=== PATIENT | female | born 1935 | race Caucasian/White ===

== ENCOUNTER 2017-01-01 06:54 | Day surgery (SDC) | payer MEDICARE, OTHER ==
[~2017-01-01 06:54] MED LIST: Lactated Ringers 1,000 ML IV SCH; Lidocaine 1%/Sod Bicarbonate in NS 8.4% 1 ML Syringe IV PRN; Sodium Chloride 0.9% 10 ML Syringe FLUSH PRN
[2017-01-01] MEDS ORDERED: Propofol 200 MG/20 ML SDV ONE ×2 (07:24→09:10)
[2017-01-01] MEDS ORDERED: fentaNYL 250 MCG/5 ML SDV ONE (07:24)
[2017-01-01] MEDS ORDERED: Bupivacaine 0.25% 10 ML SDV ONE (07:33)
[2017-01-01] MEDS ORDERED: Ropivacaine 0.5% 5 MG/ML 30 ML SDV ONE (07:42)
--- NOTE | 2017-01-01 08:34 | PCM.PREANE ---
Preanesthetic Assessment - Anesthesia/Transfusion/Family Hx Anesthesia History: Prior Anesthesia Without Reaction Family History of Anesthesia Reaction: No - Review of Systems General: No Symptoms Pulmonary: No Symptoms Cardiovascular: No Symptoms Gastrointestinal: Abdominal pain (pt states GI discomfort is normal for her) Neurological: No Symptoms Other: Reports: None - Physical Assessment NPO Status Date: 12/31/16 NPO Status Time: 18:15 Pulse: 66 O2 Sat by Pulse Oximetry: 98 Respiratory Rate: 16 Blood Pressure: 143/77 Temperature: 36.8 C Height: 1.55 m Weight: 45.359 kg ASA Class: 2 Mental Status: Alert & Oriented x3 Airway Class: Mallampati = 2 Dentition: Reports: [place](s), Missing Tooth/Teeth (missing two molars 1 upper and one lower right side) Thyro-Mental Finger Breadths: 3 Mouth Opening Finger Breadths: 3 ROM/Head Extension: Full Lungs: Clear to auscultation, Normal respiratory effort Cardiovascular: Regular Rate, Regular Rhythm, No Murmurs - Lab Values: Laboratory Last Values MRSA (PCR) Negative 12/23/16 11:38 CBC and BMP essentially normal from [address] on 12/23/16 - Imaging/EKG Impressions: EKG sinus nicolás with PAC from [address] on 12/23/16 - Allergies Allergies/Adverse Reactions: Allergies Allergy/AdvReac Type Severity Reaction Status Date / Time lidocaine AdvReac Mild Swelling Verified 12/31/16 14:52 - Anesthesia Plan Beta Avni: Metoprolol Med Last Dose Date: 01/01/17 Med Last Dose Time: 05:45 - Acknowledgements Anesthesia Type Planned: Regional Block (Right Ankle Block) Pt an Appropriate Candidate for the Planned Anesthesia: Yes Alternatives and Risks of Anesthesia Discussed w Pt/Guardian: Yes Pt/Guardian Understands and Agrees with Anesthesia Plan: Yes PreAnesthesia Questionnaire HEENT History: Reports: Impaired vision Cardiovascular History: Reports: High cholesterol, Hypertension Respiratory History: Reports: None Gastrointestinal History: Reports: GERD Genitourinary History: Reports: None STEAM TABLE ASSOCIATE History: Reports: None Musculoskeletal History: Reports: Other (see below) Other Musculoskeletal History: muscle pain, osteporosis, 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 Neurological History: Reports: Migraines Psychiatric History: Reports: None Endocrine/Metabolic History: Reports: None Hematologic History: Reports: None Immunologic History: Reports: None Oncologic (Cancer) History: Reports: None Dermatologic History: Reports: None - Past Surgical History Head Surgeries/Procedures: Reports: None HEENT Surgical History: Reports: Cataract surgery, Tonsillectomy GI Surgical History: Reports: Appendectomy, Colonoscopy, Other (see below) Other GI Surgeries/Procedures: hiatal hernia - SUBSTANCE USE Smoking Status *Q: Never Smoker Tobacco Use Within Last Twelve Months: No Second Hand Smoke Exposure: No Days Per Week of Alcohol Use: 0 Recreational Drug Use History: No - HOME MEDS Home Medications: Home Meds Gabapentin 100 mg PO BEDTIME 11/15/14 [History] Lisinopril/Hydrochlorothiazide [Lisinopril-Hctz 20-12.5 mg Tab] 1 tab PO DAILY 11/15/14 [History] Metoprolol Tartrate 25 mg PO BID 11/15/14 [History] atorvaSTATin [Lipitor] 10 mg PO BEDTIME 11/15/14 [History] Denosumab [Prolia] 60 mg SQ ASDIRECTED 12/02/14 [History] Lactobacillus Acidophilus [Probiotic] 1 tab PO DAILY 12/02/14 [History] Cholecalciferol (Vitamin D3) [Vitamin D3] 1,000 unit PO DAILY 12/31/16 [History] Flaxseed Oil [Flax Oil] 1,000 mg PO DAILY 12/31/16 [History] Glucosamine/D3/Boswellia Angelique [Osteo Bi-Flex Caplet] 2 cap PO DAILY 12/31/16 [ History] [place]-3 Fatty Acids [Fish Oil] 300 mg PO DAILY 12/31/16 [History] Omeprazole 20 mg PO Q48H 12/31/16 [History] Vit A/C/E AC/Znox/Cupric Oxide [Eye Vitamin-Minerals Tablet] 1 tab PO DAILY 02/11 [History] Hydrocodone/Acetaminophen [[place] 5-325 Tablet] 1 - 2 each PO Q6H PRN #40 tablet 01/01/17 [Rx] Aspirin 325 mg PO BID #100 tablet 01/02/17 [Rx] - CURRENT (IN HOUSE) MEDS Current Meds: Current Medications Lactated Ringer's (Ringers, Lactated) 1,000 mls @ 125 mls/hr IV ASDIRECTED SEEMA Stop: 01/01/17 23:00 Last Admin: 01/01/17 07:30 Dose: 125 mls/hr Lidocaine/Sodium Bicarbonate (Buffered Lidocaine 1% In Ns 8.4%) 0.25 ml IV ONETIME PRN PRN Reason: Prior to IV Start Stop: 01/01/17 18:00 Sodium Chloride (Saline Flush) 10 ml FLUSH ASDIRECTED PRN PRN Reason: Keep Vein Open Stop: 01/01/17 18:00 Discontinued Medications Bupivacaine HCl (Sensorcaine-Mpf 0.25%) Confirm Administered Dose 30 ml .ROUTE .STK-MED ONE Stop: 01/01/17 07:34 Fentanyl (Sublimaze) Confirm Administered Dose 250 mcg .ROUTE .STK-MED ONE Stop: 01/01/17 07:25 Propofol (Diprivan 20 Ml) Confirm Administered Dose 200 mg .ROUTE .STK-MED ONE Stop: 01/01/17 07:25 Ropivacaine (Naropin 0.5%) Confirm Administered Dose 30 ml .ROUTE .STK-MED ONE Stop: 01/01/17 07:43 Preanesthetic Assessment - ANESTHESIA/TRANSFUSION/FAMILY HX Anesthesia/Transfusion History: No Prior Anesthesia Family History of Anesthesia Reaction: No Intubation History: Unknown - PHYSICAL ASSESSMENT Height: 1.55 m Weight: 45.359 kg - LAB Values: Laboratory Last Values MRSA (PCR) Negative 12/23/16 11:38 - ALLERGIES Allergies/Adverse Reactions: Allergies Allergy/AdvReac Type Severity Reaction Status Date / Time lidocaine AdvReac Mild Swelling Verified 12/31/16 14:52
--- NOTE | 2017-01-01 09:34 | PCM.SN ---
- Free Text/Narrative Note: ANesthesiology Procedure Note Right Ankle Block requested by Dr Lopez and by pt. After ID, H&P, IV, PARQ: Ankle Block with sedation, Consent Obtained. Standard Monitors and NCO2 placed Pre-procedure vitals 154/54, 66, 98%, 14RR Time out at 07:55 Procedural sedation of 30 mg propofol and 50 mcg fentanyl given IV Sterile prep (chloraprep) and drape of Right Foot and Ankle 25 Ga 1.5 inch needle inserted lateral to extensor hallucis tendon until contact with bone. withdrawn 2 mm and 3cc of Ropivacaine 0.5% with 1:200,000 epi injected in fanwise fashion after neg aspirations. needle withdrawn. needle re-inserted just behind medial malleolus until bone contacted. needle withdrawn 1 mm and 3 cc of same LA mixture injected in fan fashion after neg aspirations. needle withdrawn. Needle reinserted just cephalad of medial malleolus and 5cc of same LA mix injected in a subcvutaneous weal both posteriorly to the achilles tendon and anteriorly to the tibial ridge. needle withdrawn. needle inserted again at the tibial ridge at the level of the upper border of the lateral malleolus and 5 cc injected in a weal from tibial ridge posterolaterally to the lateral malleolus and again 4cc in a subcutaneous weal from lateral malleolus to achilles tendon. needle withdrawn. pt tolerated procedure well. no complications. Post-procedure Vitals - 117/66, HR 56, RR12, 96%
--- NOTE | 2017-01-01 09:58 | PCM.OPNOTE ---
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
[2017-01-01] MEDS ORDERED: EPINEPHrine 1 MG/ML SDV ONE (10:19)
[2017-01-01] MEDS ORDERED: Phenylephrine 1% 10 MG/ML SDV ONE (10:19)
[2017-01-01] MEDS ORDERED: ceFAZolin 1 GM Vial ONE (10:19)
[2017-01-01] MEDS ORDERED: Lactated Ringers 1,000 ML ONE (10:19)
--- NOTE | 2017-01-01 10:31 | PCM48HPAN ---
Post Anesthesia Note - EVALUATION WITHIN 48HRS OF ANESTHETIC Vital Signs in Normal Range: Yes Patient Participated in Evaluation: Yes Respiratory Function Stable: Yes Airway Patent: Yes Cardiovascular Function Stable: Yes Hydration Status Stable: Yes Pain Control Satisfactory: Yes Nausea and Vomiting Control Satisfactory: Yes Mental Status Recovered: Yes
[2017-01-01] MEDS ORDERED: fentaNYL 100 MCG/2 ML SDV IVPUSH PRN (10:35)
[2017-01-01] MEDS ORDERED: Acetaminophen/HYDROcodone 325-5 MG Tab PO ONE (10:56)
[2017-01-01 11:16] VITALS: BP 125/70
--- NOTE | 2017-01-01 11:52 | CR ---
Right foot: Multiple fluoroscopic spot views of the right foot were obtained centered to the right first toe. Study obtained utilizing C-arm device. Plate and screws have been placed across the MTP joint. Slight deformity presumably due to subacute to old fracture seen within the base of this proximal phalanx of the second digit. Fluoroscopy time given as 35.8 seconds. Impression: 1. Study showing placement of plate and screws across the first MTP joint. 2. Subacute to old fracture within the second toe. Diagnostic code #2
--- NOTE | 2017-01-07 09:02 | OR ---
DATE OF OPERATION: 01/01/2017 SURGEON: Lalo Lopez MD OPERATIVE PROCEDURE: 1. Right great toe metatarsophalangeal fusion. 2. Second toe extensor lengthening with Lemons resection arthroplasty and capsular release with pinning of 2nd metatarsophalangeal joint. 3. Second toe flexor tenotomy. 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 ANESTHESIA TECHNIQUE: Local MAC. ANESTHESIA PROVIDER: Lake Smith M.D. ASSISTANTS: Britni Kapoor PA-C and Blaze Johnson M.D. ESTIMATED BLOOD LOSS: 5 mL. COMPLICATIONS: None. CONDITION: Stable. DESCRIPTION OF PROCEDURE: The patient was identified in the preop holding area. Proper site was marked and identified by the surgeon. The patient was taken back to the operating theater, where after adequate anesthesia with an ankle block, the patient's right lower extremity was sterilely prepped and draped in the usual sterile fashion. OR time-out was performed. The patient received 2 g IV Ancef. A tourniquet was then used. At this time, first, incision was made over the 1st MTP joint. This was taken down to the capsule. A capsulotomy was then performed and takedown both medial and lateral collateral ligaments was done at this time. The patient was noted to have significant irregular wear with significant osteoarthrosis. At this time, a guidepin was placed center-center in the 1st metatarsal head and was reamed to a 20 mm concentric reamer. A guidepin was then placed in the proximal phalanx in the center-center position and the corresponding 20 mm reamer was used. At this time, after release of the capsule, it was placed in a proper position. A K-wire was placed for 3-0 cannulated screw and a 3-0 cannulated [place]illah screw was placed across the fusion site of the 1st MTP joint. It was found to have rigid fixation. At this time, a Jeffrey dorsal 1st MTP joint locking plate was placed under fluoroscopic views and was found to be in adequate position. Two nonlocking screws were placed on either side of the compression as well as 1 locking screw on either side of the compression, this was found to have adequate fixation. At this time, attention was turned to the 2nd toe, which had significant claw toe deformity. At this time, an incision was made over the extensor tendon and capsule of the 2nd MTP joint. Capsulotomy was then performed over the dorsum of the 1st MTP joint and lengthening of the extensor tendon was then done. Attention was turned to the flexor tendon and a small incision was made on the plantar surface over the proximal phalanx. The tendon sheath was identified. A small rent was made in the tendon sheath. The tendon was then extracted from the wound bed and a tenotomy was performed with a flexor tendon. The patient was found to have correction of the claw toe. At this time, it was pinned in a down enough position to allow for capsular healing. Before this, part of the proximal phalanx head and neck was resected also to shorten the 2nd phalanx to allow for better correction. Adequate saline was then irrigated through the wound. Ethibond suture was used for repair of the extensor tendon and then 3-0 Vicryl was used subcutaneously for closure of the capsule and nylon was used for the skin. The patient was placed in a sterile dressing as well as posterior slab splint and tolerated the procedure well. POSTOPERATIVE DIAGNOSIS:same MMODAL /[id number] ANGELICA
== END 2017-01-01 11:55 | disposition home or self-care (01) ==
LOC: JD.SDS 06:54
PROVIDERS: ATTEND Orthopaedic Surgery
DX: M19.071 Primary osteoarthritis, right ankle and foot (principal); K21.9 Gastro-esophageal reflux disease without esophagitis; E78.5 Hyperlipidemia, unspecified; I10 Essential (primary) hypertension; Z68.1 Body mass index [BMI] 19.9 or less, adult; Z90.49 Acquired absence of other specified parts of digestive tract; Z79.82 Long term (current) use of aspirin; Z98.890 Other specified postprocedural states; Z79.899 Other long term (current) drug therapy; Z88.8 Allergy status to other drugs, medicaments and biological substances
CPT/HCPCS: 28292; 28313; 28750; 76000; 87641; A9270; J0171; J0690; J2370; J2795; J3010; J7120; 01480; C1713; J2704

== ENCOUNTER 2017-07-08 22:04 | Emergency (ER) | payer MEDICARE, OTHER ==
[2017-07-08 22:17] VITALS: BP 158/73
[2017-07-08] MEDS ORDERED: Sodium Chloride 0.9% 10 ML Syringe FLUSH PRN (22:35)
[2017-07-08] MEDS ORDERED: methylPREDNISolone Sodium Succinate 125 MG/2 ML SDV IVPUSH ONE (22:35)
[2017-07-08] MEDS ORDERED: HYDROmorphone 0.5 MG/0.5 ML Syringe IVPUSH ONE (22:35)
[2017-07-08] MEDS ORDERED: Ketorolac 30 MG/ML SDV IVPUSH SCH (22:45)
--- NOTE | 2017-07-08 22:56 | EDM.PDOC ---
ED HPI GENERAL MEDICAL PROBLEM - General Chief Complaint: Lower Extremity Injury/Pain Stated Complaint: PAIN DOWN HER LEFT LEG Time Seen by Provider: 07/08/17 22:15 Source of Information: Reports: Patient, RN Notes Reviewed - History of Present Illness INITIAL COMMENTS - FREE TEXT/NARRATIVE: 81-year-old female comes in with severe left low back pain. She states she does have left back pain with sciatica chronically but usually able to manage with home medication. Last evening and today the pain is been much more severe than usual. Now after arrival to the ED the pain is somewhat better but it had been severe to the point of being unable to sleep. No peripheral paresthesias. No focal weakness. No recent fall or injury. Treatments SPAR FINISHER: Reports: NSAIDS Left Leg Pain Score (Numeric/FACES): 7 - Related Data Allergies Allergy/AdvReac Type Severity Reaction Status Date / Time lidocaine AdvReac Mild Swelling Verified 07/08/17 22:16 Home Meds: Home Meds Gabapentin 100 mg PO BEDTIME 11/15/14 [History] Lisinopril/Hydrochlorothiazide [Lisinopril-Hctz 20-12.5 mg Tab] 1 tab PO DAILY 11/15/14 [History] Metoprolol Tartrate 25 mg PO BID 11/15/14 [History] atorvaSTATin [Lipitor] 10 mg PO BEDTIME 11/15/14 [History] Denosumab [Prolia] 60 mg SQ ASDIRECTED 12/02/14 [History] Lactobacillus Acidophilus [Probiotic] 1 tab PO DAILY 12/02/14 [History] Cholecalciferol (Vitamin D3) [Vitamin D3] 1,000 unit PO DAILY 12/31/16 [History] Flaxseed Oil [Flax Oil] 450 mg PO DAILY 12/31/16 [History] Glucosamine/D3/Boswellia Angelique [Osteo Bi-Flex Caplet] 2 cap PO DAILY 12/31/16 [ History] Scalf-3 Fatty Acids [Fish Oil] 300 mg PO DAILY 12/31/16 [History] Omeprazole 20 mg PO Q48H 12/31/16 [History] Vit A/C/E AC/Znox/Cupric Oxide [Eye Vitamin-Minerals Tablet] 1 tab PO DAILY 02/11 [History] Aspirin 81 mg PO BRK 07/08/17 [History] Past Medical History HEENT History: Reports: Impaired Vision Cardiovascular History: Reports: High Cholesterol, Hypertension Respiratory History: Reports: None Gastrointestinal History: Reports: GERD Genitourinary History: Reports: None WASH TEST CHECKER History: Reports: None Musculoskeletal History: Reports: Back Pain, Chronic, Other (See Below) Other Musculoskeletal History: sciatica Neurological History: Reports: Migraines Psychiatric History: Reports: None Endocrine/Metabolic History: Reports: None Hematologic History: Reports: None Immunologic History: Reports: None Oncologic (Cancer) History: Reports: None Dermatologic History: Reports: None - Past Surgical History HEENT Surgical History: Reports: Cataract Surgery, Tonsillectomy GI Surgical History: Reports: Appendectomy, Colonoscopy, Other (See Below) Social & Family History - Tobacco Use Smoking Status *Q: Never Smoker Second Hand Smoke Exposure: No - Caffeine Use Caffeine Use: Reports: None - Alcohol Use Days Per Week of Alcohol Use: 0 - Recreational Drug Use Recreational Drug Use: No Review of Systems - Review of Systems Review Of Systems: See Below Constitutional: Denies: Chills, Fever Eyes: Reports: No Symptoms Mouth/Throat: Reports: No Symptoms Respiratory: Denies: Shortness of Breath, Pleuritic Chest Pain Cardiovascular: Denies: Chest Pain GI/Abdominal: Denies: Abdominal Pain, Nausea, Vomiting Musculoskeletal: Reports: Back Pain (Left low back) Skin: Reports: No Symptoms Neurological: Denies: Numbness, Tingling, Weakness ED EXAM, GENERAL - Physical Exam Exam: See Below General Appearance: Alert, Mild Distress Throat/Mouth: Normal Inspection Head: Atraumatic. No: Facial Swelling Neck: Supple, Full Range of Motion Respiratory/Chest: No Respiratory Distress, Lungs Clear, Normal Breath Sounds Cardiovascular: Regular Rate, Rhythm Extremities: Normal Inspection. No: Leg Pain, Increased Warmth (Lower leg is nontender), Redness Neurological: Alert, Oriented, No Motor/Sensory Deficits, Other (Mild pain with straight leg raising on the left) Skin Exam: Warm, Dry, Normal Color Course - Vital Signs Last Recorded V/S: Last Vital Signs Temp 98.1 F 07/08/17 22:13 Pulse 59 L 07/08/17 22:13 Resp 18 07/08/17 22:13 BP 158/73 H 07/08/17 22:13 Pulse Ox 96 07/08/17 22:13 - Orders/Labs/Meds Orders: Active Orders 24 hr Category Date Time Status Peripheral IV Care [RC] . DIRECTED Care 07/08/17 22:36 Active Ketorolac [Toradol] Med 07/08/17 22:45 Active 30 mg IVPUSH ONETIME Sodium Chloride 0.9% [Saline Flush] Med 07/08/17 22:35 Active 10 ml FLUSH ASDIRECTED PRN Peripheral IV Insertion Adult [OM.PC] Stat Oth 07/08/17 22:35 Ordered Medication Orders Ketorolac Tromethamine (Toradol) 30 mg IVPUSH ONETIME SEEMA Last Admin: 07/08/17 22:45 Dose: 30 mg Sodium Chloride (Saline Flush) 10 ml FLUSH ASDIRECTED PRN PRN Reason: Keep Vein Open Last Admin: 07/08/17 22:46 Dose: 10 ml Meds: Medications Generic Name Dose Route Start Last Admin Trade Name Freq PRN Reason Stop Dose Admin Ketorolac Tromethamine 30 mg 07/08/17 22:45 07/08/17 22:45 Toradol IVPUSH 30 mg ONETIME SEEMA Administration Sodium Chloride 10 ml 07/08/17 22:35 07/08/17 22:46 Saline Flush FLUSH 10 ml ASDIRECTED PRN Administration Keep Vein Open Discontinued Medications Generic Name Dose Route Start Last Admin Trade Name Freq PRN Reason Stop Dose Admin Hydromorphone HCl 0.5 mg 07/08/17 22:35 07/08/17 22:45 Dilaudid IVPUSH 07/08/17 22:36 0.5 mg ONETIME ONE Administration Methylprednisolone Sodium Succinate 125 mg 07/08/17 22:35 07/08/17 22:45 Solu-Medrol IVPUSH 07/08/17 22:36 125 mg ONETIME ONE Administration - Re-Assessments/Exams Free Text/Narrative Re-Assessment/Exam: 07/08/17 22:58 Have treated with IV Dilaudid 0.5 mg, IV Toradol and IV Solu-Medrol, discharge instructions as documented. Departure - Departure Time of Disposition: 23:15 Disposition: Home, Self-Care 01 Condition: Fair Clinical Impression: Back pain with left-sided sciatica - Discharge Information Referrals: Kike Warren MD [Primary Care Provider] - Additional Instructions: Rest back, no heavy lifting, alternate ice and heat as needed, Aleve one tablet 3 times daily with food, you may take 500 mg Tylenol with one half tablet hydrocodone 2-3 times daily in between doses of Aleve for extra pain relief, As the pain gets better than stop the hyrdrocodone. Prednisone every morning as prescribed for the next 6 days, follow-up with your chiropractor until symptoms resolving, follow-up with your regular medical provider if not much better within 3-4 days as expected, return to ED as needed if symptoms worsening in any way. - My Orders Last 24 Hours: My Active Orders 07/08/17 22:35 Sodium Chloride 0.9% [Saline Flush] 10 ml FLUSH ASDIRECTED PRN Peripheral IV Insertion Adult [OM.PC] Stat 07/08/17 22:36 Peripheral IV Care [RC] . DIRECTED 07/08/17 22:45 Ketorolac [Toradol] 30 mg IVPUSH ONETIME - Assessment/Plan Last 24 Hours: My Active Orders 07/08/17 22:35 Sodium Chloride 0.9% [Saline Flush] 10 ml FLUSH ASDIRECTED PRN Peripheral IV Insertion Adult [OM.PC] Stat 07/08/17 22:36 Peripheral IV Care [RC] . DIRECTED 07/08/17 22:45 Ketorolac [Toradol] 30 mg IVPUSH ONETIME
== END 2017-07-08 23:11 | disposition home or self-care (01) ==
LOC: JD.ED 22:04
DX: M54.42 Lumbago with sciatica, left side (principal); E78.00 Pure hypercholesterolemia, unspecified; I10 Essential (primary) hypertension; K21.9 Gastro-esophageal reflux disease without esophagitis; Z79.899 Other long term (current) drug therapy; Z88.8 Allergy status to other drugs, medicaments and biological substances
CPT/HCPCS: 96374; 96375; 99283; J1170; J1885; J2930; J7050; 99284

== ENCOUNTER 2017-07-11 15:23 | Emergency (ER) | payer MEDICARE, OTHER ==
[2017-07-11] MEDS ORDERED: Acetaminophen/HYDROcodone 325-5 MG Tab PO ONE (16:26)
--- NOTE | 2017-07-11 16:31 | EDM.PDOC ---
ED HPI GENERAL MEDICAL PROBLEM - General Chief Complaint: Cardiovascular Problem Stated Complaint: PAIN DOWN L LEG Time Seen by Provider: 07/11/17 15:47 Source of Information: Reports: Patient, RN Notes Reviewed - History of Present Illness INITIAL COMMENTS - FREE TEXT/NARRATIVE: 81-year-old female that is been having left lobe back discomfort with sciatica some time. However this is been much worse over the past week or so. Seen here in the ED about 3 or 4 days ago, started on one half tablet hydrocodone along with 500 mg Tylenol. So was started on prednisone. However she does not feel like the sciatica discomfort has improved. She last medicated about 8 hours ago. The pain is worse with certain types of motion. It is the leg pain that is really the most severe for her. No numbness tingling or weakness. Left Hip Pain Score (Numeric/FACES): 6 - Related Data Allergies Allergy/AdvReac Type Severity Reaction Status Date / Time lidocaine AdvReac Mild Swelling Verified 07/11/17 15:34 Home Meds: Home Meds Gabapentin 100 mg PO BEDTIME 11/15/14 [History] Lisinopril/Hydrochlorothiazide [Lisinopril-Hctz 20-12.5 mg Tab] 1 tab PO DAILY 11/15/14 [History] Metoprolol Tartrate 25 mg PO BID 11/15/14 [History] atorvaSTATin [Lipitor] 10 mg PO BEDTIME 11/15/14 [History] Denosumab [Prolia] 60 mg SQ ASDIRECTED 12/02/14 [History] Lactobacillus Acidophilus [Probiotic] 1 tab PO DAILY 12/02/14 [History] Cholecalciferol (Vitamin D3) [Vitamin D3] 1,000 unit PO DAILY 12/31/16 [History] Flaxseed Oil [Flax Oil] 450 mg PO DAILY 12/31/16 [History] Glucosamine/D3/Boswellia Angelique [Osteo Bi-Flex Caplet] 2 cap PO DAILY 12/31/16 [ History] [place]-3 Fatty Acids [Fish Oil] 300 mg PO DAILY 12/31/16 [History] Omeprazole 20 mg PO Q48H 12/31/16 [History] Vit A/C/E AC/Znox/Cupric Oxide [Eye Vitamin-Minerals Tablet] 1 tab PO DAILY 02/11 [History] Aspirin 81 mg PO BRK 07/08/17 [History] Past Medical History HEENT History: Reports: Impaired Vision Cardiovascular History: Reports: High Cholesterol, Hypertension Respiratory History: Reports: None Gastrointestinal History: Reports: GERD Genitourinary History: Reports: None 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 Musculoskeletal History: Reports: Back Pain, Chronic, Other (See Below) Other Musculoskeletal History: sciatica Neurological History: Reports: Migraines Psychiatric History: Reports: None Endocrine/Metabolic History: Reports: None Hematologic History: Reports: None Immunologic History: Reports: None Oncologic (Cancer) History: Reports: None Dermatologic History: Reports: None - Past Surgical History Head Surgeries/Procedures: Reports: None HEENT Surgical History: Reports: Cataract Surgery, Tonsillectomy GI Surgical History: Reports: Appendectomy, Colonoscopy, Other (See Below) Social & Family History - Tobacco Use Smoking Status *Q: Never Smoker Second Hand Smoke Exposure: No - Caffeine Use Caffeine Use: Reports: None - Alcohol Use Days Per Week of Alcohol Use: 0 - Recreational Drug Use Recreational Drug Use: No ED ROS GENERAL - Review of Systems Review Of Systems: See Below Constitutional: Denies: Fever, Chills, Diaphoresis HEENT: Reports: No Symptoms Respiratory: Denies: Shortness of Breath Cardiovascular: Denies: Chest Pain GI/Abdominal: Denies: Abdominal Pain, Nausea, Vomiting Musculoskeletal: Reports: Leg Pain Skin: Reports: No Symptoms (Left lower extremity) Neurological: Denies: Numbness, Tingling, Weakness ED EXAM, GENERAL - Physical Exam Exam: See Below General Appearance: Alert, Mild Distress Head: Atraumatic Neck: Supple, Full Range of Motion Respiratory/Chest: No Respiratory Distress, Lungs Clear, Normal Breath Sounds Cardiovascular: Regular Rate, Rhythm GI/Abdominal: Soft, Non-Tender Back Exam: Other (There is mild tenderness of the left low back and left buttock ). No: CVA Tenderness (L), CVA Tenderness (R) Extremities: Limited Range of Motion (She does have pain with straight leg raising on the left). No: No Pedal Edema, Pedal Edema, Increased Warmth, Pallor Neurological: Alert, Oriented, No Motor/Sensory Deficits Skin Exam: Warm, Dry, Normal Color Course - Vital Signs Last Recorded V/S: Last Vital Signs Temp 98 F 07/11/17 15:32 Pulse 78 07/11/17 15:32 Resp 16 07/11/17 15:32 BP Pulse Ox 98 07/11/17 15:32 - Orders/Labs/Meds Meds: Medications Discontinued Medications Generic Name Dose Route Start Last Admin Trade Name Nicho PRN Reason Stop Dose Admin Hydrocodone Bitart/Acetaminophen 1 tab 07/11/17 16:26 07/11/17 16:41 [place] 325-5 Mg PO 07/11/17 16:27 1 tab ONETIME ONE Administration - Re-Assessments/Exams Free Text/Narrative Re-Assessment/Exam: 07/14/17 04:03. I did write an order for outpatient MRI. Also increasing her pain medication to one full tablet hydrocodone every 6-8 hours as needed. Discharge instructions as documented Departure - Departure Time of Disposition: 16:27 Disposition: Home, Self-Care 01 Condition: Fair Clinical Impression: Sciatica associated with disorder of lumbosacral spine Instructions: Sciatica Referrals: Kike Warren MD [Primary Care Provider] - Forms: ED Department Discharge Additional Instructions: Increase hydrocodone dosage to one full tablet 3 times daily if needed for severe pain, the Aleve one tablet 3 times daily with food. Be sure to drink plenty of water when taking these medications. I recomend taking a stool softener once or twice daily as the hydrocodone will tend to make you constipated. You may take one half tablet Ambien at night if needed to help you sleep. See Dr. Raman gave her early next week, call Thursday for appointment. MRI of back early next week. An order has been provided. Radiology will call you Thursday with a time.
== END 2017-07-11 16:47 | disposition home or self-care (01) ==
LOC: JD.ED 15:23
DX: M54.32 Sciatica, left side (principal); M53.87 Other specified dorsopathies, lumbosacral region; Z88.5 Allergy status to narcotic agent; E78.00 Pure hypercholesterolemia, unspecified; I10 Essential (primary) hypertension; K21.9 Gastro-esophageal reflux disease without esophagitis; Z79.899 Other long term (current) drug therapy
CPT/HCPCS: 99283; A9270; 99282

== ENCOUNTER 2017-07-19 22:01 | Inpatient (IN) | payer MEDICARE, OTHER ==
[2017-07-19] MEDS ORDERED: Sodium Chloride 0.9% 10 ML Syringe FLUSH PRN (22:41)
[2017-07-19] MEDS ORDERED: HYDROmorphone 0.5 MG/0.5 ML Syringe IVPUSH ONE (22:41)
[2017-07-19] MEDS ORDERED: Ketorolac 15 MG/ML SDV IVPUSH ONE (22:51)
--- NOTE | 2017-07-19 23:35 | EDM.PDOC ---
ED HPI GENERAL MEDICAL PROBLEM - General Chief Complaint: Lower Extremity Injury/Pain Stated Complaint: back pain Time Seen by Provider: 07/19/17 22:27 Source of Information: Reports: Patient, Family History Limitations: Reports: No Limitations - History of Present Illness INITIAL COMMENTS - FREE TEXT/NARRATIVE: The patient presents with left low back pain with sciatica. This has been a problem for a few years but for the past couple weeks it has been much worse. She was seen in the ER on the and the . She had a new MRI done on . It showed a new bulging disc at L5. She is on hydrocodone, aleve, valium, and neurontin for pain and it has not been helping. She denies any weakness but with the pain she is having a hard time waling and needs a walker. She denies any groin numbness, bowel or bladder problems. She has no fever, chills, cough, chest pain, shortness of breath, abdominal pain, nausea or vomiting. Onset: Gradual Duration: Week(s): Location: Reports: Back (Left), Lower Extremity, Left Quality: Reports: Sharp Severity: Severe Improves with: Reports: None Worsens with: Reports: Movement Associated Symptoms: Reports: No Other Symptoms Left Leg Pain Score (Numeric/FACES): 8 - Related Data Allergies Allergy/AdvReac Type Severity Reaction Status Date / Time lidocaine AdvReac Mild Swelling Verified 07/11/17 15:34 Home Meds: Home Meds Gabapentin 100 mg PO BEDTIME 11/15/14 [History] Lisinopril/Hydrochlorothiazide [Lisinopril-Hctz 20-12.5 mg Tab] 1 tab PO DAILY 11/15/14 [History] Metoprolol Tartrate 25 mg PO BID 11/15/14 [History] atorvaSTATin [Lipitor] 10 mg PO BEDTIME 11/15/14 [History] Denosumab [Prolia] 60 mg SQ ASDIRECTED 12/02/14 [History] Lactobacillus Acidophilus [Probiotic] 1 tab PO DAILY 12/02/14 [History] Cholecalciferol (Vitamin D3) [Vitamin D3] 1,000 unit PO DAILY 12/31/16 [History] Flaxseed Oil [Flax Oil] 450 mg PO DAILY 12/31/16 [History] Glucosamine/D3/Boswellia Angelique [Osteo Bi-Flex Caplet] 2 cap PO DAILY 12/31/16 [ History] [place]-3 Fatty Acids [Fish Oil] 300 mg PO DAILY 12/31/16 [History] Omeprazole 20 mg PO Q48H 12/31/16 [History] Vit A/C/E AC/Znox/Cupric Oxide [Eye Vitamin-Minerals Tablet] 1 tab PO DAILY 02/11 [History] Aspirin 81 mg PO BRK 07/08/17 [History] Past Medical History HEENT History: Reports: Impaired Vision Cardiovascular History: Reports: High Cholesterol, Hypertension Respiratory History: Reports: None Gastrointestinal History: Reports: GERD Other Gastrointestinal History: IBS Genitourinary History: Reports: None 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 OF RECRUITMENT History: Reports: 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 Musculoskeletal History: Reports: Back Pain, Chronic, Other (See Below) Other Musculoskeletal History: sciatica, buldging disc Neurological History: Reports: Migraines Psychiatric History: Reports: None Endocrine/Metabolic History: Reports: None Hematologic History: Reports: None Immunologic History: Reports: None Oncologic (Cancer) History: Reports: None Dermatologic History: Reports: None - Past Surgical History Head Surgeries/Procedures: Reports: None HEENT Surgical History: Reports: Cataract Surgery, Tonsillectomy GI Surgical History: Reports: Appendectomy, Colonoscopy, Other (See Below) Other Musculoskeletal Surgeries/Procedures:: R joint fusion on toe, bunionecotmy Social & Family History - Tobacco Use Smoking Status *Q: Never Smoker Second Hand Smoke Exposure: No - Caffeine Use Caffeine Use: Reports: None - Alcohol Use Days Per Week of Alcohol Use: 0 - Recreational Drug Use Recreational Drug Use: No Review of Systems - Review of Systems Review Of Systems: See Below Constitutional: Reports: No Symptoms Eyes: Reports: No Symptoms Ears: Reports: No Symptoms Nose: Reports: No Symptoms Mouth/Throat: Reports: No Symptoms Respiratory: Reports: No Symptoms Cardiovascular: Reports: No Symptoms GI/Abdominal: Reports: No Symptoms Genitourinary: Reports: No Symptoms Musculoskeletal: Reports: Back Pain (Left with sciatica) ED EXAM, GENERAL - Physical Exam Exam: See Below Exam Limited By: No Limitations General Appearance: Alert, No Apparent Distress Ears: Normal External Exam Nose: Normal Inspection Head: Atraumatic, Normocephalic Neck: Normal Inspection Respiratory/Chest: No Respiratory Distress, Lungs Clear, Normal Breath Sounds Cardiovascular: Regular Rate, Rhythm, No Edema, No Murmur GI/Abdominal: Soft, Non-Tender, No Organomegaly, No Mass Back Exam: Other (Mild pain upon palpation to the left low back) Extremities: Normal Inspection Neurological: Alert, Oriented, No Motor/Sensory Deficits Course - Vital Signs Last Recorded V/S: Last Vital Signs Temp 97.1 F 07/19/17 22:11 Pulse 71 07/19/17 22:11 Resp 16 07/19/17 22:11 BP 155/69 H 07/19/17 22:11 Pulse Ox 99 07/19/17 22:11 - Orders/Labs/Meds Orders: Active Orders 24 hr Category Date Time Status Peripheral IV Care [RC] . DIRECTED Care 07/19/17 22:41 Active Sodium Chloride 0.9% [Saline Flush] Med 07/19/17 22:41 Active 10 ml FLUSH ASDIRECTED PRN Peripheral IV Insertion Adult [OM.PC] Routine Oth 07/19/17 22:41 Ordered Medication Orders Sodium Chloride (Saline Flush) 10 ml FLUSH ASDIRECTED PRN PRN Reason: Keep Vein Open Last Admin: 07/19/17 22:57 Dose: 10 ml Meds: Medications Generic Name Dose Route Start Last Admin Trade Name Freq PRN Reason Stop Dose Admin Sodium Chloride 10 ml 07/19/17 22:41 07/19/17 22:57 Saline Flush FLUSH 10 ml ASDIRECTED PRN Administration Keep Vein Open Discontinued Medications Generic Name Dose Route Start Last Admin Trade Name Freq PRN Reason Stop Dose Admin Hydromorphone HCl 0.5 mg 07/19/17 22:41 07/19/17 22:57 Dilaudid IVPUSH 07/19/17 22:42 0.5 mg ONETIME ONE Administration Ketorolac Tromethamine 15 mg 07/19/17 22:51 07/19/17 23:00 Toradol IVPUSH 07/19/17 22:52 15 mg ONETIME ONE Administration - Re-Assessments/Exams Free Text/Narrative Re-Assessment/Exam: 07/19/17 23:34 I ordered an IV saline lock, dilaudid 0.5mg IV and toradol 15mg IV. I feel she needs to be admitted for the bulging disc and intractable low back pain. I called Dr Luna and he agreed to the admission. Departure - Departure Time of Disposition: 23:35 Disposition: Refer to Observation Condition: Good Clinical Impression: L4-L5 disc bulge, Back pain with left-sided sciatica, Sciatica associated with disorder of lumbosacral spine - Discharge Information Referrals: Kike Warren MD [Primary Care Provider] - - My Orders Last 24 Hours: My Active Orders 07/19/17 22:41 Peripheral IV Care [RC] . DIRECTED Sodium Chloride 0.9% [Saline Flush] 10 ml FLUSH ASDIRECTED PRN Peripheral IV Insertion Adult [OM.PC] Routine - Assessment/Plan Last 24 Hours: My Active Orders 07/19/17 22:41 Peripheral IV Care [RC] . DIRECTED Sodium Chloride 0.9% [Saline Flush] 10 ml FLUSH ASDIRECTED PRN Peripheral IV Insertion Adult [OM.PC] Routine
[2017-07-19] MEDS ORDERED: Acetaminophen 325 MG Tab PO PRN (23:52)
[2017-07-19] MEDS ORDERED: Acetaminophen/HYDROcodone 325-5 MG Tab PO PRN (23:52)
[2017-07-19] MEDS ORDERED: LORazepam 2 MG/ML MDV IV PRN (23:52)
[2017-07-19] MEDS ORDERED: Promethazine 12.5 MG in Sodium Chloride 0.9% 50 ML IV PRN (23:52)
[2017-07-19] MEDS ORDERED: Bisacodyl 5 MG Tab PO PRN (23:52)
[2017-07-19] MEDS ORDERED: Polyethylene Glycol 3350 Powder 17 GM Packet PO PRN (23:52)
[2017-07-19] MEDS ORDERED: Temazepam 7.5 MG Cap PO PRN (23:52)
[2017-07-19] MEDS ORDERED: Docusate Sodium 100 MG Cap PO PRN (23:52)
[2017-07-19] MEDS ORDERED: Albuterol/Ipratropium 3.0-0.5 MG/3 ML Neb Soln NEB PRN (23:52)
[2017-07-19] MEDS ORDERED: Ondansetron 4 MG/2 ML SDV IV PRN (23:52)
--- NOTE | 2017-07-19 23:52 | PCM.HP ---
H&P History of Present Illness - General Date of Service: 07/19/17 Admit Problem/Dx: Admission Diagnosis/Problem Admission Diagnosis/Problem Low back pain Source of Information: Patient, Old Records, Provider, RN Notes Reviewed History Limitations: Reports: Physical Impairment - History of Present Illness Initial Comments - Free Text/Narative: This is an 81 yo elderly white female with past medical hx/o impaired vision, hypertension, hyper anemia, GERD, IBS, chronic back pain with radiculopathy, sciatica, bulging disc at L5, osteoporosis, and migraine headaches who presents to the emergency department with complaints of persistent low back pain with radiation to the back of her leg. Patient has been seen here in the emergency department for a couple of times on the and the for similar complaints. On , patient was diagnosed with a new bulging disc at L5 via MRI. She has been managed on hydrocodone, Aleve, Valium, and Neurontin for pain but without much help. She denies any weakness. She has numbness and tingling related to radiculopathy but no more than usual. Her pain is aggravated by movement. She denies any loss of bowel or bladder control. No inner thighs numbness or tingling. She admits to having urinary retention and constipation. She denies any other associated issues. She had no labs done while in ED. Patient received initial treatment in the emergency department before she was sent to the floor for further observation. She is being admitted for intractable low back pain. Her code status is full. Left Leg Pain Score (Numeric/FACES): 8 - Related Data Allergies/Adverse Reactions: Allergies Allergy/AdvReac Type Severity Reaction Status Date / Time lidocaine AdvReac Mild Swelling Verified 07/20/17 01:00 Home Medications: Home Meds Gabapentin 100 mg PO BEDTIME 11/15/14 [History] Lisinopril/Hydrochlorothiazide [Lisinopril-Hctz 20-12.5 mg Tab] 1 tab PO DAILY 11/15/14 [History] Metoprolol Tartrate 25 mg PO BID 11/15/14 [History] atorvaSTATin [Lipitor] 10 mg PO BEDTIME 11/15/14 [History] Denosumab [Prolia] 60 mg SQ ASDIRECTED 12/02/14 [History] Lactobacillus Acidophilus [Probiotic] 1 tab PO DAILY 12/02/14 [History] Cholecalciferol (Vitamin D3) [Vitamin D3] 1,000 unit PO DAILY 12/31/16 [History] Flaxseed Oil [Flax Oil] 450 mg PO DAILY 12/31/16 [History] Glucosamine/D3/Boswellia Angelique [Osteo Bi-Flex Caplet] 2 cap PO DAILY 12/31/16 [ History] [place]-3 Fatty Acids [Fish Oil] 300 mg PO DAILY 12/31/16 [History] Omeprazole 20 mg PO Q48H 12/31/16 [History] Vit A/C/E AC/Znox/Cupric Oxide [Eye Vitamin-Minerals Tablet] 1 tab PO DAILY 02/11 [History] Aspirin 81 mg PO BRK 07/08/17 [History] Past Medical History HEENT History: Reports: Impaired Vision Cardiovascular History: Reports: High Cholesterol, Hypertension Respiratory History: Reports: None Gastrointestinal History: Reports: GERD Other Gastrointestinal History: IBS Genitourinary History: Reports: None 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 Musculoskeletal History: Reports: Back Pain, Chronic, Other (See Below) Other Musculoskeletal History: sciatica, buldging disc Neurological History: Reports: Migraines Psychiatric History: Reports: None Endocrine/Metabolic History: Reports: None Hematologic History: Reports: None Immunologic History: Reports: None Oncologic (Cancer) History: Reports: None Dermatologic History: Reports: None - Past Surgical History Head Surgeries/Procedures: Reports: None HEENT Surgical History: Reports: Cataract Surgery, Tonsillectomy GI Surgical History: Reports: Appendectomy, Colonoscopy, Other (See Below) Other Musculoskeletal Surgeries/Procedures:: R joint fusion on toe, bunionecotmy Social & Family History - Tobacco Use Smoking Status *Q: Never Smoker Second Hand Smoke Exposure: No - Caffeine Use Caffeine Use: Reports: None - Alcohol Use Days Per Week of Alcohol Use: 0 - Recreational Drug Use Recreational Drug Use: No H&P Review of Systems - Review of Systems: Review Of Systems: See Below General: Reports: Weakness. Denies: Fever, Chills, Malaise, Fatigue HEENT: Reports: No Symptoms Pulmonary: Denies: Shortness of Breath Cardiovascular: Denies: Chest Pain Gastrointestinal: Reports: Constipation. Denies: Abdominal Pain, Nausea, Vomiting Genitourinary: Reports: Retention Musculoskeletal: Reports: Back Pain, Leg Pain Skin: Denies: Cyanosis, Pallor, Diaphoresis, Pruritis, Erythema Psychiatric: Denies: Depression, Mood Lability, Anxiety, Agitation, Hallucinations Neurological: Reports: Numbness, Tingling, Difficulty Walking, Weakness, Gait Disturbance. Denies: Confusion, Pre-Existing Deficit Hematologic/Lymphatic: Reports: No Symptoms Immunologic: Reports: No Symptoms Exam - Exam Exam: See Below - Vital Signs Vital Signs: Last Vital Signs Temp 36.2 C 07/19/17 22:11 Pulse 71 07/19/17 22:11 Resp 16 07/19/17 22:11 BP 155/69 H 07/19/17 22:11 Pulse Ox 99 07/19/17 22:11 Weight: 45.359 kg - Exam General: Alert, Oriented, Cooperative, Mild Distress HEENT: Conjunctiva Clear, EACs Clear, EOMI, Hearing Intact, Mucosa Moist & [place] , Nares Patent, Normal Nasal Septum, Posterior Pharynx Clear, Pupils Equal, Pupils Reactive Neck: Supple, Trachea Midline, +2 Carotid Pulse wo Bruit, Full Range of Motion Lungs: Clear to Auscultation, Normal Respiratory Effort Cardiovascular: Regular Rate, Regular Rhythm GI/Abdominal Exam: Normal Bowel Sounds, Soft, Non-Tender, No Organomegaly, No Distention, No Abnormal Bruit (Female) Exam: Deferred Rectal (Female) Exam: Deferred Back Exam: Decreased Range of Motion, Muscle Spasm, Paraspinal Tenderness, Vertebral Tenderness Extremities: Normal Inspection, Non-Tender, No Pedal Edema, Normal Capillary Refill, Limited Range of Motion Peripheral Pulses: 3+: Posterior Tibial (L), Posterior Tibial (R), Dorsalis Pedis (L), Dorsalis Pedis (R) Skin: Warm, Dry, Intact Neuro Extensive - Mental Status: Oriented x3, Normal Cognition, Memory Intact Neuro Extensive - Motor, Sensory, Reflexes: CN II-XII Intact (limited exam due to pain with movement), Abnormal Gait Psychiatric: Alert, Normal Affect, Normal Mood - Patient Data Result Diagrams: 07/20/17 05:15 07/20/17 05:15 *Q Meaningful Use (ADM) - VTE *Q VTE Criteria *Q: - Stroke *Q Stroke Criteria *Q: - AMI *Q AMI Criteria *Q: Problem List Initiated/Reviewed/Updated: Yes Orders Last 24hrs: Medication Orders Sodium Chloride (Saline Flush) 10 ml FLUSH ASDIRECTED PRN PRN Reason: Keep Vein Open Last Admin: 07/19/17 22:57 Dose: 10 ml Assessment/Plan Comment:: Assessment/Plan: Acute: Intractable Back Pain w/ Radiculopathy - Acute on Chronic - 2/2 Bulging Disc at L5 - Her risk factor is Osteoporosis - Failed outpatient treatment - Currently on Gabapentin, Hydrocodone, Aleve, Valium for pain management - She follows Dr. Ramirez in [place] - Fentanyl Patch low dose; PRN pain meds - Continue Gabapentin and will add PNR Zanaflex for muscle spasm - PT/OT eval Chronic: Impaired Vision HTN HLD GERD Osteoporosis IBS Back Pain With Radiculopathy/Sciatica Hx/o L5 Bulging Disc Migraine Headache Plan: Admit to OBS Resume Some Home Meds Routine AM Labs PT/OT consult Stool Softeners for Constipation CM/SW for d/c planning Follow Up with Dr. Ramirez after discharge Code status: 1
[2017-07-19] MEDS ORDERED: Metoprolol Tartrate 5 MG/5 ML SDV IVPUSH PRN (23:58)
[2017-07-19] MEDS ORDERED: LORazepam 2 MG/ML MDV IVPUSH PRN (23:58)
[2017-07-19] MEDS ORDERED: hydrALAZINE 20 MG/ML SDV IVPUSH PRN (23:58)
[2017-07-19] MEDS ORDERED: tiZANidine 4 MG Tab PO PRN (23:59)
[2017-07-20] MEDS ORDERED: fentaNYL 12 MCG/HR Transdermal Patch TRDERM SCH
[2017-07-20] MEDS: HYDROmorphone 0.5 MG/0.5 ML Syringe IVPUSH PRN ×2 (02:56→10:34)
[2017-07-20] MEDS: Sodium Chloride 0.9% 1,000 ML IV SCH ×2 (03:07→22:33)
[2017-07-20] MEDS ORDERED: ASPIRIN 81 MG PO SCH (10:45)
[2017-07-20] MEDS ORDERED: METOPROLOL TARTRATE 50 MG PO SCH (11:00)
[2017-07-20] MEDS ORDERED: LISINOPRIL HCTZ PO SCH (11:15)
[2017-07-20] MEDS: Magnesium Hydroxide 400 MG/5 ML Susp 30 ML Cup PO PRN (12:04)
[2017-07-20] MEDS: Fish Oil/Omega-3 Fatty Acids 1 Gm Cap PO SCH (12:05)
[2017-07-20] MEDS: Saccharomyces Boulardii (Probiotic) 250 MG Cap PO SCH (12:05)
[2017-07-20] MEDS: Multivitamins with Minerals/Folic Acid/Lutein/Zeaxanth Tab PO SCH (12:05)
[2017-07-20] MEDS: FLAXSEED OIL PO SCH (12:09)
[2017-07-20] MEDS: BOSWELLIA SERRA PO SCH (12:10)
[2017-07-20] MEDS: D3 PO SCH (12:10)
[2017-07-20] MEDS: Cholecalciferol (Vitamin D3) 1,000 Unit Tab PO SCH (12:10)
[2017-07-20] MEDS: GLUCOSAMINE PO SCH (12:10)
[2017-07-20] MEDS: Gabapentin 100 MG Cap PO SCH ×3 (12:12→20:08)
[2017-07-20] MEDS: Celecoxib 100 MG Cap PO SCH ×2 (12:17→20:08)
[2017-07-20] MEDS: Acetaminophen/oxyCODONE 325-5 MG Tab PO PRN ×2 (12:17→20:09)
--- NOTE | 2017-07-20 13:21 | PCM.PN ---
- General Info Date of Service: 07/20/17 Admission Dx/Problem (Free Text): Admission Diagnosis/Problem Admission Diagnosis/Problem Low back pain Amie is a pleasant 81yo female, appears younger than her age resting in bed. Back pain is essentially unchanged from admission yesterday. Fentanyl patch was started, along with PO hydrocodone and IV dilaudid. None of these medications seem to help the pain. She and her state they make her very sleepy but pain is still present, almost constant from left buttock radiating down left leg to just above the ankle on the outside of her leg. No bowel or bladder dysfunction other than mild constipation. MRI done on 07/17/17 as outpatient shows L5-S1 disc bulge with compromising nerve root to left side. Patient and are aware of these results. Past hx relating to back pain: she has had "years" of low back pain with intermittent "sciatica". She had ankle fusion and bunion surgery in December of this year with Dr Lopez and was "in a boot for 2 months" which really bothered her back. Since that time the sciatica has been intermittent and seemed to worsen with each flare. Most recently the past 3 weeks pain has been worse and now constant. She has had 3 ER visits in the past 2-3 weeks. She has been tried on PO prednisone with no relief. She has seen Dr. Cao, Neurosurgeon in [place], in the past for low back pain issues. Dr. Warren is her PCP. Functional Status: Reports: Tolerating Diet (low appetite), Ambulating (with PT/ OT, notes minimal weakness to left leg; occasional sense "that leg will give out " but not constant), Urinating (unchanged). Denies: Pain Controlled - Review of Systems General: Reports: Weakness (left leg). Denies: Fever, Chills HEENT: Reports: No Symptoms. Denies: Headaches, Visual Changes Pulmonary: Reports: No Symptoms Cardiovascular: Reports: No Symptoms Gastrointestinal: Reports: Constipation (mild) Genitourinary: Reports: No Symptoms Musculoskeletal: Reports: Back Pain Neurological: Reports: Other (constant pain down left leg from buttock to just above ankle). Denies: Numbness, Paresthesia, Tingling - Patient Data Vitals - Most Recent: Last Vital Signs Temp 97.5 F 07/20/17 12:08 Pulse 63 07/20/17 12:08 Resp 14 07/20/17 12:08 BP 119/59 L 07/20/17 12:08 Pulse Ox 95 07/20/17 12:08 Weight - Most Recent: 100 lb Med Orders - Current: Current Medications Acetaminophen (Tylenol) 650 mg PO Q4H PRN PRN Reason: Pain (Mild 1-3)/fever Albuterol/Ipratropium (Duoneb 3.0-0.5 Mg/3 Ml) 3 ml NEB Q4H PRN PRN Reason: Shortness Of Breath/wheezing Aspirin (Halfprin) 81 mg PO BRK [facility] Bisacodyl (Dulcolax) 5 mg PO DAILY PRN PRN Reason: Constipation Celecoxib (Celebrex) 100 mg PO BID [facility] Last Admin: 07/20/17 12:17 Dose: 100 mg Cholecalciferol (Vitamin D3) 1,000 units PO DAILY [facility] Last Admin: 07/20/17 12:10 Dose: Not Given Docusate Sodium (Colace) 100 mg PO BID PRN PRN Reason: Constipation Famotidine (Pepcid) 20 mg PO BID [facility] Fentanyl (Duragesic) 12 mcg TRDERM Q72H [facility] Last Admin: 07/20/17 01:20 Dose: 12 mcg Fish Oil (Fish Oil) 1 gm PO DAILY [facility] Last Admin: 07/20/17 12:05 Dose: Not Given Gabapentin (Neurontin) 100 mg PO TID [facility] Last Admin: 07/20/17 12:12 Dose: 100 mg Hydralazine HCl (Apresoline) 20 mg IVPUSH Q4H PRN PRN Reason: Hypertension Hydromorphone HCl (Dilaudid) 0.5 mg IVPUSH Q4H PRN PRN Reason: Pain (severe 7-10) Last Admin: 07/20/17 10:34 Dose: 0.5 mg Sodium Chloride (Normal Saline) 1,000 mls @ 50 mls/hr IV ASDIRECTED [facility] Last Admin: 07/20/17 03:07 Dose: 50 mls/hr Lorazepam (Ativan) 0.25 mg IV Q4H PRN PRN Reason: Anxiety Lorazepam (Ativan) 2 mg IVPUSH Q4H PRN PRN Reason: Seizures Magnesium Hydroxide (Milk Of Magnesia) 30 ml PO BID PRN PRN Reason: Constipation Last Admin: 07/20/17 12:04 Dose: 30 ml Magnesium Sulfate (Pharmacy To Dose - Magnesium Replacement) 1 dose .XX ASDIRECTED [facility] Metoprolol Tartrate (Lopressor) 25 mg PO BID [facility] Last Admin: 07/20/17 12:06 Dose: 25 mg Metoprolol Tartrate (Lopressor) 5 mg IVPUSH Q4H PRN PRN Reason: Tachycardia Miscellaneous Information (Remove Patch) 1 ea TRDERM Q72H [facility] Ondansetron HCl (Zofran) 4 mg IV Q6H PRN PRN Reason: Nausea/Vomiting Oxycodone/Acetaminophen (Percocet 325-5 Mg) 1 tab PO Q4H PRN PRN Reason: Pain Last Admin: 07/20/17 12:17 Dose: 1 tab Atorvastatin 10 Mg 0 each PO BEDTIME [facility] Flaxseed Oil 450 Mg 0 each PO DAILY [facility] Last Admin: 07/20/17 12:09 Dose: Not Given Glucosamine/D3/Boswellia Angelique [ Osteo Bi-Flex Caplet ] 0 each PO DAILY [facility] Last Admin: 07/20/17 12:10 Dose: Not Given Lisinopril-Hctz 20- (12.5 Mg) 0 each PO DAILY [facility] Last Admin: 07/20/17 12:11 Dose: 1 each Omeprazole 20 Mg 0 each PO Q48H [facility] Polyethylene Glycol (Miralax) 17 gm PO DAILY PRN PRN Reason: Constipation Potassium Chloride (Pharmacy To Dose - Potassium Replacement) 1 dose .XX ASDIRECTED [facility] Saccharomyces Boulardii (Florastor) 250 mg PO DAILY [facility] Last Admin: 07/20/17 12:05 Dose: Not Given Senna/Docusate Sodium (Senna Plus) 1 tab PO BID PRN PRN Reason: Constipation Sodium Chloride (Saline Flush) 10 ml FLUSH ASDIRECTED PRN PRN Reason: Keep Vein Open Last Admin: 07/19/17 22:57 Dose: 10 ml Temazepam (Restoril) 7.5 mg PO BEDTIME PRN PRN Reason: Sleep Tizanidine HCl (Zanaflex) 4 mg PO Q8H PRN PRN Reason: Muscle Spasm Last Admin: 07/20/17 08:36 Dose: 4 mg Vit A/Vit C/Vit E/Selen/Cu/Zn/Lutei (Icaps Mv) 1 tab PO DAILY [facility] Last Admin: 07/20/17 12:05 Dose: Not Given Discontinued Medications Hydrocodone Bitart/Acetaminophen ([place] 325-5 Mg) 1 tab PO Q4H PRN PRN Reason: Pain (moderate 4-6) Last Admin: 07/20/17 05:27 Dose: 1 tab Aspirin (Halfprin) 81 mg PO BRK [facility] Last Admin: 07/20/17 12:04 Dose: 81 mg Fentanyl (Duragesic) 12 mcg TRDERM Q72H [facility] Gabapentin (Neurontin) 100 mg PO BEDTIME [facility] Hydromorphone HCl (Dilaudid) 0.5 mg IVPUSH ONETIME ONE Stop: 07/19/17 22:42 Last Admin: 07/19/17 22:57 Dose: 0.5 mg Promethazine HCl 12.5 mg/ (Sodium Chloride) 50.5 mls @ 100 mls/hr IV Q6H PRN PRN Reason: Nausea/Vomiting Ketorolac Tromethamine (Toradol) 15 mg IVPUSH ONETIME ONE Stop: 07/19/17 22:52 Last Admin: 07/19/17 23:00 Dose: 15 mg - Exam Quality Assessment: DVT Prophylaxis General: Alert, Oriented, Cooperative, No Acute Distress HEENT: Pupils Equal, EOMI, Mucous Membr. Moist/[place] Neck: Supple Lungs: Clear to Auscultation, Normal Respiratory Effort Cardiovascular: Regular Rate, Regular Rhythm GI/Abdominal Exam: Normal Bowel Sounds, Soft, Non-Tender (Female) Exam: Deferred Extremities: Normal Inspection, No Pedal Edema, Normal Capillary Refill. No: Pedal Edema Peripheral Pulses: 2+: Dorsalis Pedis (L), Dorsalis Pedis (R) Skin: Warm, Dry, Intact Neurological: Normal Speech, Normal Tone, Other (Hyperreflexic to patellar reflexes bilat and equal. ). No: Strength Equal Bilateral (left side LE weakness 3-4/5, right side LE is 5/5. ) Psy/Mental Status: Alert, Normal Affect, Normal Mood, Other (lethargic) - Problem List & Annotations (1) Intractable back pain SNOMED Code(s): 045480186 Code(s): M54.9 - DORSALGIA, UNSPECIFIED Status: Acute Priority: High Current Visit: Yes (2) L4-L5 disc bulge SNOMED Code(s): 171431639 Code(s): M51.26 - OTHER INTERVERTEBRAL DISC DISPLACEMENT, LUMBAR REGION Status: Chronic Priority: High Current Visit: Yes (3) Sciatica associated with disorder of lumbosacral spine SNOMED Code(s): 98038303 Code(s): M53.9 - DORSOPATHY, UNSPECIFIED Status: Acute Priority: High Current Visit: Yes (4) Degenerative disc disease SNOMED Code(s): 53120154 Code(s): [id number] - Status: Chronic Priority: High Current Visit: Yes Qualifiers: Spinal region: lumbosacral Qualified Code(s): M51.37 - Other intervertebral disc degeneration, lumbosacral region (5) Scoliosis SNOMED Code(s): 290036146 Code(s): M41.9 - SCOLIOSIS, UNSPECIFIED Status: Chronic Priority: Medium Current Visit: Yes Qualifiers: Scoliosis type: unspecified scoliosis Spinal region: lumbosacral Qualified Code(s): M41.9 - Scoliosis, unspecified - Problem List Review Problem List Initiated/Reviewed/Updated: Yes - My Orders Last 24 Hours: My Active Orders 07/20/17 12:02 Acetaminophen/oxyCODONE [Percocet 325-5 MG] 1 tab PO Q4H PRN 07/20/17 12:08 Heat Therapy [OM.PC] Routine 07/20/17 12:15 Celecoxib [CeleBREX] 100 mg PO BID Gabapentin [Neurontin] 100 mg PO TID 07/20/17 21:00 Famotidine [Pepcid] 20 mg PO BID - Plan Plan:: Assessment/Plan: Acute: Intractable Acute low Back Pain w/ left sided Radiculopathy to the ankle - Acute on Chronic - 2/2 Bulging Disc at L5-S1; MRI completed on 07/17/17- see reports for details - Her risk factor is Osteoporosis, scoliosis, DDD, DJD - Failed outpatient treatment (3 ED visits within 2 weeks for worsening pain ) failed prednisone PO within the last 2 weeks, hesitant for further systemic steroids with hx of osteoporosis and initial dose/taper was not helpful - Currently on Gabapentin, Hydrocodone, Aleve, Valium for pain management 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 Ramirez in [place]--unsure of last visit, 1-2 years ago - Trial Fentanyl Patch low dose; PRN pain meds - PT/OT eval -Pain without improvement since admission: will increase gabapentin from QD to TID, change hydrocodone to percocet. She rec'd toradol IVP in ED, will add Celebrex BID, heat/cold for comfort. Cont fentanyl patch and IV dilaudid PRN for now. -I did speak to Dr. Cao via phone today; he was able to review her MRI images of lumbar spine from 07/17/17, recommends SHELLEY (epidural steroid injection ) for now prior to any surgical intervention. Discussed with CM and will try to arrange SHELLEY inocencio in [place]. Chronic: Impaired Vision HTN- controlled HLD GERD- H2B during stay for GI prophylax Osteoporosis- on prolia IBS-- now wiht constipation d/t narcotic pain medications; bowel regimen PRN Back Pain With Radiculopathy/Sciatica--chronic Scoliosis DDD/DJD Hx/o L5 Bulging Disc Migraine Headache Plan: Patient does meet inpatient criteria; will change from observation status to inpatient today. Routine AM Labs--have been unremarkable Medication adjustments as above with hopes to improve pain control. PT/OT consult Stool Softeners for Constipation GI/DVT prophylax CM/SW for d/c planning--DC once pain is under control Follow Up with Dr. Ramirez after discharge--and arrange SHLELEY inocencio as above. PT as outpatient has already been scheduled per PCP. Code status: 1
[2017-07-20] MEDS: Simvastatin 10 MG Tab PO SCH (20:08)
[2017-07-20] MEDS: Famotidine 20 MG Tab PO SCH (20:08)
[2017-07-20] MEDS: Metoprolol Tartrate 25 MG Tab PO SCH (20:09)
[2017-07-20] MEDS ORDERED: GABAPENTIN 100 MG PO SCH (21:00)
[2017-07-21] MEDS ORDERED: fentaNYL 12 MCG/HR Transdermal Patch TRDERM SCH
[2017-07-21] MEDS: Acetaminophen/oxyCODONE 325-5 MG Tab PO PRN ×3 (00:54→15:11)
[2017-07-21] MEDS: Pantoprazole 40 MG Tab.CR PO SCH (06:38)
[2017-07-21] MEDS: Aspirin 81 MG Tab.EC PO SCH (06:38)
--- NOTE | 2017-07-21 06:53 | PCM.SN ---
- Free Text/Narrative Note: Nurse summoned me to patient room; patient has just had fall in bathroom. She was accompanied by DIELECTRIC MACHINE OPERATOR, turned to sit on toilet, lost her balance and fell onto her left side; shoulder and hip and onto buttock. She struck the left occiput on "the hamper". There is a small 0.25cm abrasion to the left occiput. Exam is without other obvious injuries, left shoulder is normal to inspection, no pain to palpation, ROM to shoulder is full and "just sore" with motion. Exam of back and palpation of vertebra and SI joints are without new acute pain, no worsening of back pain or sciatica type pain now. Left hip and pelvis is stable , normal ROM without pain, normal skin exam. Orders placed for head CT without contrast, xray of lt shoulder, lt hip and pelvis. Reassurance provided to have assistance when OOB at all times, she is aware. Nursing to continue close monitoring and neuro checks hourly x 4 hours. She is on ASA 81mg, no other blood thinners. She has hx of osteoporosis on prolia.
[2017-07-21] MEDS ORDERED: Pantoprazole 40 MG Tab.CR PO SCH (07:00)
[2017-07-21] MEDS: Hydrochlorothiazide 12.5 MG Cap PO SCH (08:11)
[2017-07-21] MEDS: Gabapentin 100 MG Cap PO SCH ×3 (08:11→20:46)
[2017-07-21] MEDS: Lisinopril 20 MG Tab PO SCH (08:11)
[2017-07-21] MEDS: Famotidine 20 MG Tab PO SCH (08:11)
[2017-07-21] MEDS: Multivitamins with Minerals/Folic Acid/Lutein/Zeaxanth Tab PO SCH (08:11)
[2017-07-21] MEDS: Cholecalciferol (Vitamin D3) 1,000 Unit Tab PO SCH (08:11)
[2017-07-21] MEDS: Metoprolol Tartrate 25 MG Tab PO SCH ×2 (08:11→20:46)
[2017-07-21] MEDS: Fish Oil/Omega-3 Fatty Acids 1 Gm Cap PO SCH (08:11)
[2017-07-21] MEDS: Celecoxib 100 MG Cap PO SCH ×2 (08:11→20:47)
[2017-07-21] MEDS: Saccharomyces Boulardii (Probiotic) 250 MG Cap PO SCH (08:18)
[2017-07-21] MEDS: FLAXSEED OIL PO SCH (08:18)
[2017-07-21] MEDS: GLUCOSAMINE PO SCH (08:19)
[2017-07-21] MEDS: BOSWELLIA SERRA PO SCH (08:19)
[2017-07-21] MEDS: D3 PO SCH (08:19)
--- NOTE | 2017-07-21 09:00 | CR ---
Pelvis and left hip: AP view of the pelvis was obtained as well as AP and frog-leg lateral views of the left hip. Comparison: Previous pelvis and right hip study of 10/13/12 is available. Mild joint space narrowing seen within the right hip. Sacroiliac joints are within normal limits. Mild scoliosis present within the visualized spine. Osteopenia is present. No acute fracture or other abnormality is identified. Impression: 1. Incidental findings. No acute abnormality is identified on AP pelvis or on two-view left hip exam. Diagnostic code #2
--- NOTE | 2017-07-21 09:00 | CR ---
Left shoulder: Three views of the left shoulder were obtained. Comparison: No prior shoulder study. Calcification is seen above the humeral head. This is most likely due to calcific bursitis or tendinitis. Cystic change is seen within the humeral head which is incidental. Joint space narrowing is identified within the acromioclavicular joint. Minimal inferior spurring is seen off the glenoid. No acute fracture or other abnormality is seen. Impression: 1. Probable calcific tendinitis. 2. Other degenerative change as noted above. 3. No acute abnormality is identified on left shoulder study. Diagnostic code #2
--- NOTE | 2017-07-21 09:00 | CT ---
Head CT Technique: Multiple axial sections through the brain were obtained. Intravenous contrast was not utilized. Comparison: No prior intracranial imaging. Findings: Ventricles along with basal cisterns and sulci over the convexities are within normal limits for the patient's age. Minimal diminished density noted within portions of the periventricular white matter which is compatible with minimal small vessel ischemic demyelination change. No other abnormal parenchymal densities are seen. No evidence of intracranial hemorrhage. No midline shift or mass effect is seen. Bone window settings were reviewed which show very slight mucosal thickening within the left maxillary sinus which is felt to be incidental. No acute calvarial abnormality is identified. Impression: 1. Findings felt to be incidental as described above. 2. No acute abnormality is identified on noncontrast head CT study. Diagnostic code #2
[2017-07-21] MEDS: Magnesium Hydroxide 400 MG/5 ML Susp 30 ML Cup PO PRN (12:27)
--- NOTE | 2017-07-21 12:32 | PCM.PN ---
- General Info Date of Service: 07/21/17 Admission Dx/Problem (Free Text): Admission Diagnosis/Problem Admission Diagnosis/Problem Low back pain Amie is a pleasant 81yo female, appears younger than her age resting in bed. She had a fall in bathroom earlier this morning; see prior simple note documentation. All imaging, xray of hip/pelvis and shoulder are unremarkable for acute change or fx. Head CT is negative or normal. Back pain is improved from yesterday. Still has not had BM. Working with PT. MRI done on 07/17/17 as outpatient shows L5-S1 disc bulge with compromising nerve root to left side. Patient and are aware of these results. Past hx relating to back pain: she has had "years" of low back pain with intermittent "sciatica". She had ankle fusion and bunion surgery in December of this year with Dr Lopez and was "in a boot for 2 months" which really bothered her back. Since that time the sciatica has been intermittent and seemed to worsen with each flare. Most recently the past 3 weeks pain has been worse and now constant. She has had 3 ER visits in the past 2-3 weeks. She has been tried on PO prednisone with no relief. She has seen Dr. Cao, Neurosurgeon in [place], in the past for low back pain issues. Dr. Warren is her PCP. Functional Status: Reports: Pain Controlled (improved), Tolerating Diet, Ambulating, Urinating - Review of Systems General: Reports: No Symptoms HEENT: Reports: No Symptoms Pulmonary: Reports: No Symptoms Cardiovascular: Reports: No Symptoms Gastrointestinal: Reports: No Symptoms Genitourinary: Reports: No Symptoms Musculoskeletal: Reports: Back Pain, Leg Pain Skin: Reports: No Symptoms Neurological: Reports: No Symptoms Psychiatric: Reports: No Symptoms - Patient Data Vitals - Most Recent: Last Vital Signs Temp 97.3 F 07/21/17 11:22 Pulse 65 07/21/17 11:22 Resp 18 07/21/17 11:22 BP 102/85 07/21/17 11:22 Pulse Ox 96 07/21/17 11:22 Weight - Most Recent: 101 lb 11.2 oz I&O - Last 24 Hours: Intake & Output 07/20/17 07/21/17 07/21/17 22:59 06:59 14:59 Intake Total 1829 774 Output Total 600 Balance 1229 774 Lab Results Last 24 Hours: Laboratory Results - last 24 hr 07/21/17 07/21/17 07/21/17 Range/Units 05:50 05:50 05:50 WBC 7.18 (3.98-10.04) K/mm3 RBC 4.20 (3.98-5.22) M/mm3 Hgb 13.2 (11.2-15.7) gm/L Hct 38.8 (34.1-44.9) % MCV 92.4 (79.4-94.8) fl MCH 31.4 (25.6-32.2) pg MCHC 34.0 (32.2-35.5) g/dl RDW Std Deviation 42.2 (36.4-46.3) fL Plt Count 254 (182-369) K/mm3 MPV 8.7 L (9.4-12.3) fl Neut % (Auto) 68.0 (34.0-71.1) % Lymph % (Auto) 19.9 (19.3-51.7) % [place] % (Auto) 9.7 (4.7-12.5) % Eos % (Auto) 1.7 (0.7-5.8) Baso % (Auto) 0.4 (0.1-1.2) % Neut # (Auto) 4.88 (1.56-6.13) K/mm3 Lymph # (Auto) 1.43 (1.18-3.74) K/mm3 [place] # (Auto) 0.70 H (0.24-0.36) K/mm3 Eos # (Auto) 0.12 (0.04-0.36) K/mm3 Baso # (Auto) 0.03 (0.01-0.08) K/mm3 Sodium 131 L (136-145) mEq/L Potassium 3.9 (3.5-5.1) mEq/L Chloride 99 (98-107) mEq/L Carbon Dioxide 25 (21-32) mEq/L Anion Gap 10.9 (5-15) BUN 20 H (7-18) mg/dL Creatinine 0.6 (0.55-1.02) mg/dL Est Cr Clr Drug Dosing 53.55 mL/min Estimated GFR (MDRD) > 60 (>60) mL/min BUN/Creatinine Ratio 33.3 H (14-18) Glucose 113 (83-115) mg/dL Calcium 8.0 L (8.5-10.1) mg/dL Magnesium 2.0 (1.8-2.4) mg/dl C-Reactive Protein 0.8 (<1.0) mg/dL Med Orders - Current: Current Medications Acetaminophen (Tylenol) 650 mg PO Q4H PRN PRN Reason: Pain (Mild 1-3)/fever Albuterol/Ipratropium (Duoneb 3.0-0.5 Mg/3 Ml) 3 ml NEB Q4H PRN PRN Reason: Shortness Of Breath/wheezing Aspirin (Halfprin) 81 mg PO BRK [facility] Last Admin: 07/21/17 06:38 Dose: 81 mg Bisacodyl (Dulcolax) 5 mg PO DAILY PRN PRN Reason: Constipation Celecoxib (Celebrex) 100 mg PO BID [facility] Last Admin: 07/21/17 08:11 Dose: 100 mg Cholecalciferol (Vitamin D3) 1,000 units PO DAILY [facility] Last Admin: 07/21/17 08:11 Dose: 1,000 units Docusate Sodium (Colace) 100 mg PO BID PRN PRN Reason: Constipation Fentanyl (Duragesic) 12 mcg TRDERM Q72H [facility] Last Admin: 07/20/17 01:20 Dose: 12 mcg Fish Oil (Fish Oil) 1 gm PO DAILY [facility] Last Admin: 07/21/17 08:11 Dose: 1 gm Gabapentin (Neurontin) 100 mg PO TID [facility] Last Admin: 07/21/17 08:11 Dose: 100 mg Hydralazine HCl (Apresoline) 20 mg IVPUSH Q4H PRN PRN Reason: Hypertension Hydrochlorothiazide (Hydrochlorothiazide) 12.5 mg PO DAILY [facility] Last Admin: 07/21/17 08:11 Dose: 12.5 mg Hydromorphone HCl (Dilaudid) 0.5 mg IVPUSH Q4H PRN PRN Reason: Pain (severe 7-10) Last Admin: 07/20/17 10:34 Dose: 0.5 mg Lisinopril (Prinivil) 20 mg PO DAILY [facility] Last Admin: 07/21/17 08:11 Dose: 20 mg Lorazepam (Ativan) 0.25 mg IV Q4H PRN PRN Reason: Anxiety Lorazepam (Ativan) 2 mg IVPUSH Q4H PRN PRN Reason: Seizures Magnesium Hydroxide (Milk Of Magnesia) 30 ml PO BID PRN PRN Reason: Constipation Last Admin: 07/20/17 12:04 Dose: 30 ml Magnesium Sulfate (Pharmacy To Dose - Magnesium Replacement) 1 dose .XX ASDIRECTED [facility] Metoprolol Tartrate (Lopressor) 5 mg IVPUSH Q4H PRN PRN Reason: Tachycardia Metoprolol Tartrate (Lopressor) 25 mg PO BID [facility] Last Admin: 07/21/17 08:11 Dose: 25 mg Miscellaneous Information (Remove Patch) 1 ea TRDERM Q72H [facility] Ondansetron HCl (Zofran) 4 mg IV Q6H PRN PRN Reason: Nausea/Vomiting Oxycodone/Acetaminophen (Percocet 325-5 Mg) 1 tab PO Q4H PRN PRN Reason: Pain Last Admin: 07/21/17 11:32 Dose: 1 tab Pantoprazole Sodium (Protonix) 40 mg PO DAILY@0700 [facility] Last Admin: 07/21/17 06:38 Dose: 40 mg Flaxseed Oil 450 Mg 0 each PO DAILY [facility] Last Admin: 07/21/17 08:18 Dose: Not Given Glucosamine/D3/Boswellia Angelique [ Osteo Bi-Flex Caplet ] 0 each PO DAILY [facility] Last Admin: 07/21/17 08:19 Dose: Not Given Polyethylene Glycol (Miralax) 17 gm PO DAILY PRN PRN Reason: Constipation Potassium Chloride (Pharmacy To Dose - Potassium Replacement) 1 dose .XX ASDIRECTED [facility] Saccharomyces Boulardii (Florastor) 250 mg PO DAILY [facility] Last Admin: 07/21/17 08:18 Dose: 250 mg Senna/Docusate Sodium (Senna Plus) 1 tab PO BID [facility] Last Admin: 07/21/17 11:32 Dose: 1 tab Simvastatin (Zocor) 10 mg PO BEDTIME [facility] Last Admin: 07/20/17 20:08 Dose: 10 mg Sodium Chloride (Saline Flush) 10 ml FLUSH ASDIRECTED PRN PRN Reason: Keep Vein Open Last Admin: 07/19/17 22:57 Dose: 10 ml Temazepam (Restoril) 7.5 mg PO BEDTIME PRN PRN Reason: Sleep Tizanidine HCl (Zanaflex) 4 mg PO Q8H PRN PRN Reason: Muscle Spasm Last Admin: 07/20/17 08:36 Dose: 4 mg Vit A/Vit C/Vit E/Selen/Cu/Zn/Lutei (Icaps Mv) 1 tab PO DAILY [facility] Last Admin: 07/21/17 08:11 Dose: 1 tab Discontinued Medications Hydrocodone Bitart/Acetaminophen (Mesa 325-5 Mg) 1 tab PO Q4H PRN PRN Reason: Pain (moderate 4-6) Last Admin: 07/20/17 05:27 Dose: 1 tab Aspirin (Halfprin) 81 mg PO BRK [facility] Last Admin: 07/20/17 12:04 Dose: 81 mg Famotidine (Pepcid) 20 mg PO BID [facility] Last Admin: 07/21/17 08:11 Dose: 20 mg Fentanyl (Duragesic) 12 mcg TRDERM Q72H [facility] Gabapentin (Neurontin) 100 mg PO BEDTIME [facility] Hydromorphone HCl (Dilaudid) 0.5 mg IVPUSH ONETIME ONE Stop: 07/19/17 22:42 Last Admin: 07/19/17 22:57 Dose: 0.5 mg Promethazine HCl 12.5 mg/ (Sodium Chloride) 50.5 mls @ 100 mls/hr IV Q6H PRN PRN Reason: Nausea/Vomiting Sodium Chloride (Normal Saline) 1,000 mls @ 50 mls/hr IV ASDIRECTED [facility] Last Admin: 07/20/17 22:33 Dose: 50 mls/hr Ketorolac Tromethamine (Toradol) 15 mg IVPUSH ONETIME ONE Stop: 07/19/17 22:52 Last Admin: 07/19/17 23:00 Dose: 15 mg Metoprolol Tartrate (Lopressor) 25 mg PO BID [facility] Last Admin: 07/20/17 12:06 Dose: 25 mg Atorvastatin 10 Mg 0 each PO BEDTIME [facility] Lisinopril-Hctz 20- (12.5 Mg) 0 each PO DAILY [facility] Last Admin: 07/20/17 12:11 Dose: 1 each Omeprazole 20 Mg 0 each PO Q48H [facility] Senna/Docusate Sodium (Senna Plus) 1 tab PO BID PRN PRN Reason: Constipation - Exam Quality Assessment: DVT Prophylaxis General: Alert, Oriented, Cooperative, No Acute Distress HEENT: Pupils Equal, EOMI, Mucous Membr. Moist/[place]: Supple Lungs: Clear to Auscultation, Normal Respiratory Effort Cardiovascular: Regular Rate, Regular Rhythm GI/Abdominal Exam: Normal Bowel Sounds, Soft, Non-Tender (Female) Exam: Deferred Back Exam: Normal Inspection Extremities: Normal Inspection, Normal Range of Motion, Non-Tender, No Pedal Edema, Normal Capillary Refill, Other (exam of hips/pelvis and left shoulder after fall this morning are with normal exam, normal ROM, no pain with ROM to UE or LE, CMS + and = bilat to UE and LE.) Peripheral Pulses: 2+: Radial (L), Radial (R), Dorsalis Pedis (L), Dorsalis Pedis (R) Skin: Warm, Dry, Other (superficial abrasion to left occipit s/p fall this morning approximately 0.25cm. ) Neurological: No New Focal Deficit, Reflexes Equal Bilateral (hyperreflexic 3+ patellar reflexes bilat. ) Psy/Mental Status: Alert, Normal Affect, Normal Mood - Problem List & Annotations (1) Intractable back pain SNOMED Code(s): 617809588 Code(s): M54.9 - DORSALGIA, UNSPECIFIED Status: Acute Priority: High Current Visit: Yes (2) L4-L5 disc bulge SNOMED Code(s): 046122839 Code(s): M51.26 - OTHER INTERVERTEBRAL DISC DISPLACEMENT, LUMBAR REGION Status: Acute Priority: High Current Visit: Yes (3) Sciatica associated with disorder of lumbosacral spine SNOMED Code(s): 84271999 Code(s): M53.9 - DORSOPATHY, UNSPECIFIED Status: Acute Priority: High Current Visit: Yes (4) Degenerative disc disease SNOMED Code(s): 66063281 Code(s): [id number] - Status: Chronic Priority: High Current Visit: Yes Qualifiers: Spinal region: lumbosacral Qualified Code(s): M51.37 - Other intervertebral disc degeneration, lumbosacral region (5) Scoliosis SNOMED Code(s): 436997899 Code(s): M41.9 - SCOLIOSIS, UNSPECIFIED Status: Chronic Priority: Medium Current Visit: Yes Qualifiers: Scoliosis type: unspecified scoliosis Spinal region: lumbosacral Qualified Code(s): M41.9 - Scoliosis, unspecified (6) Fall SNOMED Code(s): 2923990 Code(s): W19.XXXA - UNSPECIFIED FALL, INITIAL ENCOUNTER Status: Acute Priority: High Current Visit: Yes Qualifiers: Encounter type: initial encounter Qualified Code(s): W19.XXXA - Unspecified fall, initial encounter - Problem List Review Problem List Initiated/Reviewed/Updated: Yes - My Orders Last 24 Hours: My Active Orders 07/20/17 12:02 Acetaminophen/oxyCODONE [Percocet 325-5 MG] 1 tab PO Q4H PRN 07/20/17 12:08 Heat Therapy [OM.PC] Routine 07/20/17 12:15 Celecoxib [CeleBREX] 100 mg PO BID Gabapentin [Neurontin] 100 mg PO TID 07/21/17 07:00 Neuro Check [RC] Q1H - Plan Plan:: Assessment/Plan: Acute: Intractable Acute low Back Pain w/ left sided Radiculopathy to the ankle--pain improved today - Acute on Chronic - 2/2 Bulging Disc at L5-S1; MRI completed on 07/17/17- see reports for details - Her risk factor is Osteoporosis, scoliosis, DDD, DJD - Failed outpatient treatment (3 ED visits within 2 weeks for worsening pain ) failed prednisone PO within the last 2 weeks, hesitant for further systemic steroids with hx of osteoporosis and initial dose/taper was not helpful - She has seen Dr. Cao, Neurosurgeon, in [place] in the past--unsure of last visit, 1-2 years ago - Trial Fentanyl Patch low dose; PRN pain meds - PT/OT eval -I did speak to Dr. Cao via phone yesterday; he was able to review her MRI images of lumbar spine from 07/17/17, recommends SHELLEY (epidural steroid injection) for now prior to any surgical intervention. Discussed with CM and will try to arrange SHELLEY inocencio in [place]. Fall, while in bathroom this morning. -Cont PT/OT -Head CT and xrays of hip/pelvis and left shoulder WNL -Assist at all times when up--was assisted in BR by staff during time of fall -Consider [facility] PT and home safety eval prior to discharge Constipation with hx of IBS -Noted to be fairly significant on radiographs of hip and pelvis -Bowel regimen- see orders Chronic: Impaired Vision HTN- controlled HLD GERD- H2B during stay for GI prophylax Osteoporosis- on prolia IBS-- now with constipation d/t narcotic pain medications; bowel regimen PRN Back Pain With Radiculopathy/Sciatica--chronic Scoliosis DDD/DJD Hx/o L5 Bulging Disc Migraine Headache Plan: Inpatient admission Routine AM Labs--have been unremarkable Medication adjustments as above with hopes to improve pain control. PT/OT consult Stool Softeners for Constipation GI/DVT prophylax CM/SW for d/c planning--DC once pain is under control; consider [facility] for PT, home safety eval and nursing upon discharge. If pain controlled today will plan DC home tomorrow. Patient and in agreement to above noted/outlined POC. Follow Up with Dr. Ramirez after discharge--and arrange SHELLEY inocencio as above. PT as outpatient has already been scheduled per PCP. Code status: 1
[2017-07-21] MEDS ORDERED: Lactulose Soln 10 GM/15 ML 30 ML UD Cup PO ONE (17:32)
[2017-07-21] MEDS ORDERED: Bisacodyl 10 MG Supp RECTAL ONE (17:33)
[2017-07-21] MEDS: Simvastatin 10 MG Tab PO SCH (20:40)
[2017-07-22] MEDS: Acetaminophen/oxyCODONE 325-5 MG Tab PO PRN ×3 (05:54→14:01)
[2017-07-22] MEDS: Aspirin 81 MG Tab.EC PO SCH (06:01)
[2017-07-22] MEDS: Pantoprazole 40 MG Tab.CR PO SCH (06:01)
[2017-07-22] MEDS: Lisinopril 20 MG Tab PO SCH (09:00)
[2017-07-22] MEDS: Saccharomyces Boulardii (Probiotic) 250 MG Cap PO SCH (09:00)
[2017-07-22] MEDS: Cholecalciferol (Vitamin D3) 1,000 Unit Tab PO SCH (09:01)
[2017-07-22] MEDS: Celecoxib 100 MG Cap PO SCH (09:01)
[2017-07-22] MEDS: Gabapentin 100 MG Cap PO SCH (09:01)
[2017-07-22] MEDS: Multivitamins with Minerals/Folic Acid/Lutein/Zeaxanth Tab PO SCH (09:01)
[2017-07-22] MEDS: Fish Oil/Omega-3 Fatty Acids 1 Gm Cap PO SCH (09:01)
[2017-07-22] MEDS: Hydrochlorothiazide 12.5 MG Cap PO SCH (09:02)
[2017-07-22] MEDS: Metoprolol Tartrate 25 MG Tab PO SCH (09:02)
[2017-07-22 09:06] VITALS: BP 130/69
[2017-07-22] MEDS: GLUCOSAMINE PO SCH (09:06)
[2017-07-22] MEDS: BOSWELLIA SERRA PO SCH (09:06)
[2017-07-22] MEDS: D3 PO SCH (09:06)
[2017-07-22] MEDS: FLAXSEED OIL PO SCH (09:07)
--- NOTE | 2017-07-22 10:51 | PCM.DCSUM1 ---
Discharge Summary - Hospital Course Free Text/Narrative:: This is an 81 yo elderly white female with past medical hx/o impaired vision, hypertension, hyper anemia, GERD, IBS, chronic back pain with radiculopathy, sciatica, bulging disc at L5, osteoporosis, and migraine headaches who presents to the emergency department with complaints of persistent low back pain with radiation to the back of her leg. Patient has been seen here in the emergency department for a couple of times on the and the of this month for similar complaints. On , patient was diagnosed with a new bulging disc at L5/S1 via MRI. She has been managed on hydrocodone, Aleve, Valium, and Neurontin for pain but without much help. She denies any weakness. She has numbness and tingling related to radiculopathy to the left leg but no more than usual. Her pain is aggravated by movement. She denies any loss of bowel or bladder control. No inner thighs numbness or saddle paresthesia. She admits to having urinary retention and constipation in the past but nothing new. She had no labs done while in ED. Patient received initial treatment in the emergency department before she was sent to the floor for further observation. She is being admitted for intractable low back pain. Her code status is full. Course of hospital stay: medications were adjusted to find combination for adequate pain control. She was tried on fentanyl patch 12mcg which has worked well. Gabapentin 100mg daily was increased to TID and norco switched to percocet ; also taking zanaflex TID PRN. PT/OT did see and work with her. Pain slowly became controlled. She did have a fall in the bathroom overnight, while accompanied by staff. She struck her head on the hamper and landed on her left side/hip. Xray images of left hip/pelvis and left shoulder were negative for acute findings. Head CT was also done and negative. She was ambulating with walker and believes she "turned to sit too fast". She has been scheduled with Pain Clinic on Thursday07/24/17, prior through her PCP, Dr. Warren. She will follow up there, also consult with Dr. Cao, whom she has seen in the past, on Thursday07/28/17. She is to follow up with Dr. Warren, PCP, within one week of discharge. Bowel regimen was reviewed and discussed as she did have constipation during her stay. Advised no driving while taking narcotic medications. Patient will be home bound after discharge due to pain/immobility and narcotic pain medications, she will use [facility] for mobility assistance. Face to face encounter on discharge reveals she will benefit from Home Health Care nursing [id number] for pain management/medication assistance and education, PT/OT for strength, balance and Home Safety Evaluation. She will have follow up with PCP, Dr. Warren within one week of discharge who will then oversee [facility] services. - Discharge Data Discharge Date: 07/22/17 (admit date 07/20/17) Discharge Disposition: Home, W Home Health Agency 06 Condition: Good - Discharge Diagnosis/Problem(s) (1) Intractable back pain SNOMED Code(s): 181208300 ICD Code: M54.9 - DORSALGIA, UNSPECIFIED Status: Acute Priority: High Current Visit: Yes (2) L4-L5 disc bulge SNOMED Code(s): 002570939 ICD Code: M51.26 - OTHER INTERVERTEBRAL DISC DISPLACEMENT, LUMBAR REGION Status: Acute Priority: High Current Visit: Yes (3) Sciatica associated with disorder of lumbosacral spine SNOMED Code(s): 20749891 ICD Code: M53.9 - DORSOPATHY, UNSPECIFIED Status: Acute Priority: High Current Visit: Yes (4) Degenerative disc disease SNOMED Code(s): 37581215 ICD Code: [id number] - Status: Chronic Priority: High Current Visit: Yes Qualifiers: Spinal region: lumbosacral Qualified Code(s): M51.37 - Other intervertebral disc degeneration, lumbosacral region (5) Scoliosis SNOMED Code(s): 748979380 ICD Code: M41.9 - SCOLIOSIS, UNSPECIFIED Status: Chronic Priority: Medium Current Visit: Yes Qualifiers: Scoliosis type: unspecified scoliosis Spinal region: lumbosacral Qualified Code(s): M41.9 - Scoliosis, unspecified (6) Fall SNOMED Code(s): 2224562 ICD Code: W19.XXXA - UNSPECIFIED FALL, INITIAL ENCOUNTER Status: Acute Priority: High Current Visit: Yes Qualifiers: Encounter type: initial encounter Qualified Code(s): W19.XXXA - Unspecified fall, initial encounter - Patient Summary/Data Operative Procedure(s) Performed: None Complications: None Consults: Physical and Occupational Therapy Labs Pending at D/C: None Recommended Follow-up Testing/Procedures: Patient DC instructions: Fentanyl Patch placed 07/20; can remove Thursday morning. Home Health Care nursing with physical and occupational therapy with home safety evaluation. Follow up with Dr. Warren within one week of discharge. Follow up with Pain Clinic as scheduled on Thursday. Follow up with Dr. Cao on Thursday as scheduled, unless directed otherwise by pain clinic. Recommend no driving while taking pain medications, percocet or fentanyl patch. Ambulate with walker at all times for assist at home until strength and balance improve with therapies. Planned Operative Procedure(s) after DC: None Hospital Course: As above - Patient Instructions Diet: Usual Diet as Tolerated, Drink 8-10+ Glasses/Day Activity: As Tolerated, No Lifting Over 20 Pounds (until released by pain clinic /Dr. Cao or Physical Therapy) Driving: Do Not Drive (while taking narcotic pain medications) Showering/Bathing: May Shower Notify Provider of: Fever, Increased Pain, Nausea and/or Vomiting (worsening pain) - Discharge Plan Prescriptions/Med Rec: Acetaminophen/oxyCODONE [Percocet 325-5 MG] 1 tab PO Q4H PRN #30 tablet PRN Reason: Pain Celecoxib [CeleBREX] 100 mg PO BID #30 cap Docusate Sodium/Sennosides [Senna Plus] 1 tab PO BID #60 tablet Gabapentin [Neurontin] 100 mg PO TID #90 cap tiZANidine [Zanaflex] 4 mg PO Q8H PRN #30 tablet PRN Reason: back pain/muscle spasms Home Medications: Home Meds Lisinopril/Hydrochlorothiazide [Lisinopril-Hctz 20-12.5 mg Tab] 1 tab PO DAILY 11/15/14 [History] Metoprolol Tartrate 25 mg PO BID 11/15/14 [History] atorvaSTATin [Lipitor] 10 mg PO BEDTIME 11/15/14 [History] Denosumab [Prolia] 60 mg SQ ASDIRECTED 12/02/14 [History] Lactobacillus Acidophilus [Probiotic] 1 tab PO DAILY 12/02/14 [History] Cholecalciferol (Vitamin D3) [Vitamin D3] 1,000 unit PO DAILY 12/31/16 [History] Flaxseed Oil [Flax Oil] 450 mg PO DAILY 12/31/16 [History] Glucosamine/D3/Boswellia Angelique [Osteo Bi-Flex Caplet] 2 cap PO DAILY 12/31/16 [ History] [place]-3 Fatty Acids [Fish Oil] 300 mg PO DAILY 12/31/16 [History] Omeprazole 20 mg PO Q48H 12/31/16 [History] Vit A/C/E AC/Znox/Cupric Oxide [Eye Vitamin-Minerals Tablet] 1 tab PO DAILY 02/11 [History] Aspirin 81 mg PO BRK 07/08/17 [History] Acetaminophen [Tylenol] 650 mg PO Q4H PRN tablet 07/22/17 [Rx] Acetaminophen/oxyCODONE [Percocet 325-5 MG] 1 tab PO Q4H PRN #30 tablet [Rx] Celecoxib [CeleBREX] 100 mg PO BID #30 cap 07/22/17 [Rx] Docusate Sodium/Sennosides [Senna Plus] 1 tab PO BID #60 tablet 07/22/17 [Rx] Gabapentin [Neurontin] 100 mg PO TID #90 cap 07/22/17 [Rx] Magnesium Hydroxide [Milk of Magnesia] 30 ml PO BID PRN cup 07/22/17 [Rx] tiZANidine [Zanaflex] 4 mg PO Q8H PRN #30 tablet 07/22/17 [Rx] Patient Handouts: Sciatica With [facility], Sciatica, [id number], Back Pain, Adult, [id number], Herniated Disk With [facility] Referrals: Byron Cao MD [Consulting Physician] - 07/28/17 10:45 am (Appt. is in Central Standard Time. Please arrive at 10:15. Neurologist follow-up appt. ) Kike Warren MD [Primary Care Provider] - - Discharge Summary/Plan Comment DC Time >30 min.: Yes (40 min) - General Info Date of Service: 07/22/17 Admission Dx/Problem (Free Text: Admission Diagnosis/Problem Admission Diagnosis/Problem Low back pain Amie is a pleasant 81yo female resting comfortably in bed. She rested well overnight. Pain is under much better control. She did have large BM last night and feels better that way. SW discussed [facility] services with patient and and they are in agreement to services. Plans for DC home today. MRI done on 07/17/17 as outpatient shows L5-S1 disc bulge with compromising nerve root to left side. Patient and are aware of these results. Past hx relating to back pain: she has had "years" of low back pain with intermittent "sciatica". She had ankle fusion and bunion surgery in December of this year with Dr Lopez and was "in a boot for 2 months" which really bothered her back. Since that time the sciatica has been intermittent and seemed to worsen with each flare. Most recently the past 3 weeks pain has been worse and now constant. She has had 3 ER visits in the past 2-3 weeks. She has been tried on PO prednisone with no relief. She has seen Dr. Cao, Neurosurgeon in [place], in the past for low back pain issues. Dr. Warren is her PCP. Functional Status: Reports: Pain Controlled, Tolerating Diet, Ambulating, Urinating, Incentive Spirometry. Denies: New Symptoms - Review of Systems General: Reports: Weakness (improving). Denies: Fever HEENT: Reports: No Symptoms Pulmonary: Reports: No Symptoms Cardiovascular: Reports: No Symptoms Gastrointestinal: Reports: Constipation (resolved with large BM last evening). Denies: Decreased Appetite, Nausea, Vomiting Genitourinary: Reports: No Symptoms Musculoskeletal: Reports: Back Pain, Leg Pain (sciatica to left leg) Neurological: Reports: Difficulty Walking (pain to back), Weakness (lt leg), Gait Disturbance Psychiatric: Reports: No Symptoms - Patient Data Vitals - Most Recent: Last Vital Signs Temp 97.9 F 07/22/17 03:56 Pulse 73 07/22/17 09:02 Resp 14 07/22/17 03:56 BP 130/69 07/22/17 09:02 Pulse Ox 96 07/22/17 03:56 Weight - Most Recent: 100 lb 9.6 oz I&O - Last 24 hours: Intake & Output 07/21/17 07/22/17 07/22/17 22:59 06:59 14:59 Intake Total 960 200 Output Total 150 Balance 960 50 Lab Results - Last 24 hrs: Laboratory Results - last 24 hr 07/22/17 07/22/17 Range/Units 05:38 05:38 WBC 11.26 H (3.98-10.04) K/mm3 RBC 4.03 (3.98-5.22) M/mm3 Hgb 12.9 (11.2-15.7) gm/L Hct 36.6 (34.1-44.9) % MCV 90.8 (79.4-94.8) fl MCH 32.0 (25.6-32.2) pg MCHC 35.2 (32.2-35.5) g/dl RDW Std Deviation 41.7 (36.4-46.3) fL Plt Count 277 (182-369) K/mm3 MPV 9.0 L (9.4-12.3) fl Neut % (Auto) 82.1 H (34.0-71.1) % Lymph % (Auto) 9.5 L (19.3-51.7) % Lipscomb % (Auto) 7.5 (4.7-12.5) % Eos % (Auto) 0.4 L (0.7-5.8) Baso % (Auto) 0.2 (0.1-1.2) % Neut # (Auto) 9.26 H (1.56-6.13) K/mm3 Lymph # (Auto) 1.07 L (1.18-3.74) K/mm3 Lipscomb # (Auto) 0.84 H (0.24-0.36) K/mm3 Eos # (Auto) 0.04 (0.04-0.36) K/mm3 Baso # (Auto) 0.02 (0.01-0.08) K/mm3 Manual Slide Review Abnormal smear Sodium 128 L (136-145) mEq/L Potassium 3.5 (3.5-5.1) mEq/L Chloride 93 L (98-107) mEq/L Carbon Dioxide 25 (21-32) mEq/L Anion Gap 13.5 (5-15) BUN 19 H (7-18) mg/dL Creatinine 0.5 L (0.55-1.02) mg/dL Est Cr Clr Drug Dosing 64.46 mL/min Estimated GFR (MDRD) > 60 (>60) mL/min BUN/Creatinine Ratio 38.0 H (14-18) Glucose 105 (83-115) mg/dL Calcium 8.8 (8.5-10.1) mg/dL Magnesium 2.0 (1.8-2.4) mg/dl Med Orders - Current: Current Medications Acetaminophen (Tylenol) 650 mg PO Q4H PRN PRN Reason: Pain (Mild 1-3)/fever Albuterol/Ipratropium (Duoneb 3.0-0.5 Mg/3 Ml) 3 ml NEB Q4H PRN PRN Reason: Shortness Of Breath/wheezing Aspirin (Halfprin) 81 mg PO BRK [facility] Last Admin: 07/22/17 06:01 Dose: 81 mg Bisacodyl (Dulcolax) 5 mg PO DAILY PRN PRN Reason: Constipation Celecoxib (Celebrex) 100 mg PO BID [facility] Last Admin: 07/22/17 09:01 Dose: 100 mg Cholecalciferol (Vitamin D3) 1,000 units PO DAILY [facility] Last Admin: 07/22/17 09:01 Dose: 1,000 units Docusate Sodium (Colace) 100 mg PO BID PRN PRN Reason: Constipation Fentanyl (Duragesic) 12 mcg TRDERM Q72H [facility] Last Admin: 07/20/17 01:20 Dose: 12 mcg Fish Oil (Fish Oil) 1 gm PO DAILY [facility] Last Admin: 07/22/17 09:01 Dose: 1 gm Gabapentin (Neurontin) 100 mg PO TID [facility] Last Admin: 07/22/17 09:01 Dose: 100 mg Hydralazine HCl (Apresoline) 20 mg IVPUSH Q4H PRN PRN Reason: Hypertension Last Admin: 07/21/17 18:06 Dose: 20 mg Hydrochlorothiazide (Hydrochlorothiazide) 12.5 mg PO DAILY [facility] Last Admin: 07/22/17 09:02 Dose: 12.5 mg Hydromorphone HCl (Dilaudid) 0.5 mg IVPUSH Q4H PRN PRN Reason: Pain (severe 7-10) Last Admin: 07/20/17 10:34 Dose: 0.5 mg Lisinopril (Prinivil) 20 mg PO DAILY [facility] Last Admin: 07/22/17 09:00 Dose: 20 mg Lorazepam (Ativan) 0.25 mg IV Q4H PRN PRN Reason: Anxiety Lorazepam (Ativan) 2 mg IVPUSH Q4H PRN PRN Reason: Seizures Magnesium Hydroxide (Milk Of Magnesia) 30 ml PO BID PRN PRN Reason: Constipation Last Admin: 07/21/17 12:27 Dose: 30 ml Magnesium Sulfate (Pharmacy To Dose - Magnesium Replacement) 1 dose .XX ASDIRECTED [facility] Metoprolol Tartrate (Lopressor) 5 mg IVPUSH Q4H PRN PRN Reason: Tachycardia Metoprolol Tartrate (Lopressor) 25 mg PO BID [facility] Last Admin: 07/22/17 09:02 Dose: 25 mg Miscellaneous Information (Remove Patch) 1 ea TRDERM Q72H [facility] Ondansetron HCl (Zofran) 4 mg IV Q6H PRN PRN Reason: Nausea/Vomiting Oxycodone/Acetaminophen (Percocet 325-5 Mg) 1 tab PO Q4H PRN PRN Reason: Pain Last Admin: 07/22/17 05:54 Dose: 1 tab Pantoprazole Sodium (Protonix) 40 mg PO DAILY@0700 [facility] Last Admin: 07/22/17 06:01 Dose: 40 mg Flaxseed Oil 450 Mg 0 each PO DAILY [facility] Last Admin: 07/22/17 09:07 Dose: Not Given Glucosamine/D3/Boswellia Angelique [ Osteo Bi-Flex Caplet ] 0 each PO DAILY [facility] Last Admin: 07/22/17 09:06 Dose: Not Given Polyethylene Glycol (Miralax) 17 gm PO DAILY PRN PRN Reason: Constipation Potassium Chloride (Pharmacy To Dose - Potassium Replacement) 1 dose .XX ASDIRECTED [facility] Saccharomyces Boulardii (Florastor) 250 mg PO DAILY [facility] Last Admin: 07/22/17 09:00 Dose: 250 mg Senna/Docusate Sodium (Senna Plus) 1 tab PO BID [facility] Last Admin: 07/22/17 09:01 Dose: 1 tab Simvastatin (Zocor) 10 mg PO BEDTIME [facility] Last Admin: 07/21/17 20:40 Dose: 10 mg Sodium Chloride (Saline Flush) 10 ml FLUSH ASDIRECTED PRN PRN Reason: Keep Vein Open Last Admin: 07/19/17 22:57 Dose: 10 ml Temazepam (Restoril) 7.5 mg PO BEDTIME PRN PRN Reason: Sleep Tizanidine HCl (Zanaflex) 4 mg PO Q8H PRN PRN Reason: Muscle Spasm Last Admin: 07/20/17 08:36 Dose: 4 mg Vit A/Vit C/Vit E/Selen/Cu/Zn/Lutei (Icaps Mv) 1 tab PO DAILY [facility] Last Admin: 07/22/17 09:01 Dose: 1 tab Discontinued Medications Hydrocodone Bitart/Acetaminophen ([place] 325-5 Mg) 1 tab PO Q4H PRN PRN Reason: Pain (moderate 4-6) Last Admin: 07/20/17 05:27 Dose: 1 tab Aspirin (Halfprin) 81 mg PO BRK [facility] Last Admin: 07/20/17 12:04 Dose: 81 mg Bisacodyl (Dulcolax) 10 mg RECTAL ONETIME ONE Stop: 07/21/17 17:34 Last Admin: 07/21/17 17:51 Dose: 10 mg Famotidine (Pepcid) 20 mg PO BID [facility] Last Admin: 07/21/17 08:11 Dose: 20 mg Fentanyl (Duragesic) 12 mcg TRDERM Q72H [facility] Gabapentin (Neurontin) 100 mg PO BEDTIME [facility] Hydromorphone HCl (Dilaudid) 0.5 mg IVPUSH ONETIME ONE Stop: 07/19/17 22:42 Last Admin: 07/19/17 22:57 Dose: 0.5 mg Promethazine HCl 12.5 mg/ (Sodium Chloride) 50.5 mls @ 100 mls/hr IV Q6H PRN PRN Reason: Nausea/Vomiting Sodium Chloride (Normal Saline) 1,000 mls @ 50 mls/hr IV ASDIRECTED [facility] Last Admin: 07/20/17 22:33 Dose: 50 mls/hr Ketorolac Tromethamine (Toradol) 15 mg IVPUSH ONETIME ONE Stop: 07/19/17 22:52 Last Admin: 07/19/17 23:00 Dose: 15 mg Lactulose (Cephulac) 30 gm PO ONETIME ONE Stop: 07/21/17 17:33 Last Admin: 07/21/17 17:50 Dose: 30 gm Metoprolol Tartrate (Lopressor) 25 mg PO BID [facility] Last Admin: 07/20/17 12:06 Dose: 25 mg Atorvastatin 10 Mg 0 each PO BEDTIME [facility] Lisinopril-Hctz 20- (12.5 Mg) 0 each PO DAILY [facility] Last Admin: 07/20/17 12:11 Dose: 1 each Omeprazole 20 Mg 0 each PO Q48H [facility] Senna/Docusate Sodium (Senna Plus) 1 tab PO BID PRN PRN Reason: Constipation - Exam Quality Assessment: Reports: DVT Prophylaxis General: Reports: Alert, Oriented, Cooperative, No Acute Distress HEENT: Reports: Pupils Equal, EOMI, Mucous Membr. Moist/[place] Neck: Reports: Supple Lungs: Reports: Clear to Auscultation, Normal Respiratory Effort Cardiovascular: Reports: Regular Rate, Regular Rhythm GI/Abdominal Exam: Normal Bowel Sounds, Soft, Non-Tender. No: No Distention (Female) Exam: Deferred Rectal (Female) Exam: Deferred Back Exam: Reports: Normal Inspection Extremities: Normal Inspection, No Pedal Edema, Normal Capillary Refill Skin: Reports: Warm, Dry Neurological: Reports: No New Focal Deficit, Reflexes Equal Bilateral ( hyperreflexic 3+ bilat patellar reflexes and = bilat). Denies: Strength Equal Bilateral (left leg/foot with 3-4/5 strenght in comparison to right which is 5/5 ) Psy/Mental Status: Reports: Alert, Normal Affect, Normal Mood *Q Meaningful Use (DIS) - VTE *Q VTE Criteria *Q: - Stroke *Q Stroke Criteria *Q: - AMI *Q AMI Criteria *Q:
[2017-07-23] MEDS ORDERED: Remove Fentanyl 12 mcg Patch TRDERM SCH
== END 2017-07-22 15:45 | disposition home health service (06) | DRG 552 ==
LOC: JD.ED 22:01 → JD.ICU 23:47 → JD.MS 07-20 00:48 → OBSVTOIN 07-20 10:31
PROVIDERS: ADMIT Internal Medicine; ATTEND Internal Medicine
DX: M51.17 Intervertebral disc disorders with radiculopathy, lumbosacral region (principal); G89.29 Other chronic pain; K21.9 Gastro-esophageal reflux disease without esophagitis; I10 Essential (primary) hypertension; E78.5 Hyperlipidemia, unspecified; E87.5 Hyperkalemia; K58.9 Irritable bowel syndrome, unspecified; K59.09 Other constipation; Z88.4 Allergy status to anesthetic agent; Z79.82 Long term (current) use of aspirin; Z79.899 Other long term (current) drug therapy; M81.0 Age-related osteoporosis without current pathological fracture; G43.909 Migraine, unspecified, not intractable, without status migrainosus; M41.9 Scoliosis, unspecified; H54.7 Unspecified visual loss; S00.01XA Abrasion of scalp, initial encounter; W18.39XA Other fall on same level, initial encounter; Y92.231 Patient bathroom in hospital as the place of occurrence of the external cause; D64.9 Anemia, unspecified
CPT/HCPCS: 99284; 96374; 96375; 85025; 36415; 80048; 83735; A9270 ×3; J1885; J7040; J7050; J1170 ×2; 51798; 70450; 70450-26; 73030-26-LT; 73030-LT; 73502-26-LT; 73502-LT; 86140; 94762; 96361; 96376; 97110-GP; 97116-GP; 97162-GP; 97165-GO; 97530-GO; G0378; J0360

== ENCOUNTER 2017-08-03 20:30 | Emergency (ER) | payer MEDICARE, OTHER ==
[2017-08-03 20:55] VITALS: BP 129/59
--- NOTE | 2017-08-03 21:07 | EDM.PDOC ---
ED HPI GENERAL MEDICAL PROBLEM - General Chief Complaint: Neuro Symptoms/Deficits Stated Complaint: DIZZY Time Seen by Provider: 08/03/17 20:57 Source of Information: Reports: Patient History Limitations: Reports: No Limitations - History of Present Illness INITIAL COMMENTS - FREE TEXT/NARRATIVE: 81-year-old female presents to the ED with neurological symptoms of feeling somewhat dizzy offkilter and "spaced out". She was awake a very early this morning and slept poorly yesterday. She has a travel to [place] for special tests and injection of L5-S1 nerve root on the left side with anesthetic and steroids today under fluoroscopic guidance. She walks with aid of a walker. She took Percocet tablet 5/3/25 milligrams about 1600 hrs. and tizanidine about 1800 hrs. and shortly thereafter by 7:30 8:00 she was acting confused and somewhat dazed and concern for possible stroke was entertained by family. She is better now her reports probably since about the medication has worn off Onset: Today Onset Date: 08/03/17 Onset Time: 19:30 Duration: Minutes:, Hour(s): Location: Reports: Generalized Severity: Moderate Improves with: Reports: None Worsens with: Reports: None Context: Reports: Other (Medications) Associated Symptoms: Reports: Confusion, Malaise, Weakness. 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 and tizanidine 4 mg at 1800 hrs. tonight. She's had a very long day today has been up since the wee hours of the morning to travel to [place] for special injection in her back etc.) Left Leg Pain Score (Numeric/FACES): 4 - Related Data Allergies Allergy/AdvReac Type Severity Reaction Status Date / Time lidocaine AdvReac Mild Swelling Verified 08/03/17 20:55 Home Meds: Home Meds Lisinopril/Hydrochlorothiazide [Lisinopril-Hctz 20-12.5 mg Tab] 1 tab PO DAILY 11/15/14 [History] Metoprolol Tartrate 25 mg PO BID 11/15/14 [History] atorvaSTATin [Lipitor] 10 mg PO BEDTIME 11/15/14 [History] Denosumab [Prolia] 60 mg SQ ASDIRECTED 12/02/14 [History] Lactobacillus Acidophilus [Probiotic] 1 tab PO DAILY 12/02/14 [History] Cholecalciferol (Vitamin D3) [Vitamin D3] 1,000 unit PO DAILY 12/31/16 [History] Flaxseed Oil [Flax Oil] 450 mg PO DAILY 12/31/16 [History] Glucosamine/D3/Boswellia Angelique [Osteo Bi-Flex Caplet] 2 cap PO DAILY 12/31/16 [ History] [place]-3 Fatty Acids [Fish Oil] 300 mg PO DAILY 12/31/16 [History] Omeprazole 20 mg PO Q48H 12/31/16 [History] Vit A/C/E AC/Znox/Cupric Oxide [Eye Vitamin-Minerals Tablet] 1 tab PO DAILY 02/11 [History] Aspirin 81 mg PO BRK 07/08/17 [History] Acetaminophen [Tylenol] 650 mg PO Q4H PRN tablet 07/22/17 [Rx] Acetaminophen/oxyCODONE [Percocet 325-5 MG] 1 tab PO Q4H PRN #30 tablet [Rx] Celecoxib [CeleBREX] 100 mg PO BID #30 cap 07/22/17 [Rx] Docusate Sodium/Sennosides [Senna Plus] 1 tab PO BID #60 tablet 07/22/17 [Rx] Gabapentin [Neurontin] 100 mg PO TID #90 cap 07/22/17 [Rx] Magnesium Hydroxide [Milk of Magnesia] 30 ml PO BID PRN cup 07/22/17 [Rx] tiZANidine [Zanaflex] 4 mg PO Q8H PRN #30 tablet 07/22/17 [Rx] Past Medical History HEENT History: Reports: Impaired Vision Other HEENT History: glasses. 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 Musculoskeletal History: Reports: Back Pain, Chronic, Other (See Below) Other Musculoskeletal History: sciatica, buldging disc Neurological History: Reports: Migraines Psychiatric History: Reports: None Endocrine/Metabolic History: Reports: None Hematologic History: Reports: None Immunologic History: Reports: None Oncologic (Cancer) History: Reports: None Dermatologic History: Reports: None - Past Surgical History Head Surgeries/Procedures: Reports: None HEENT Surgical History: Reports: Cataract Surgery, Tonsillectomy GI Surgical History: Reports: Appendectomy, Colonoscopy, Other (See Below) Other Musculoskeletal Surgeries/Procedures:: R joint fusion on toe, bunionecotmy Social & Family History - Tobacco Use Smoking Status *Q: Never Smoker Second Hand Smoke Exposure: No - Caffeine Use Caffeine Use: Reports: None Other Caffeine Use: decaf coffee. - Alcohol Use Days Per Week of Alcohol Use: 0 - Recreational Drug Use Recreational Drug Use: No - Living Situation & Occupation Living situation: Reports: , with Spouse Occupation: Retired ED ROS GENERAL - Review of Systems Review Of Systems: See Below Constitutional: Reports: Malaise, Weakness, Fatigue, Decreased Appetite, Weight Loss. Denies: Fever, Chills HEENT: Reports: No Symptoms Respiratory: Reports: No Symptoms Cardiovascular: Reports: Blood Pressure Problem Endocrine: Reports: Fatigue GI/Abdominal: Reports: Constipation (Due to medications.) : Reports: No Symptoms Musculoskeletal: Reports: Back Pain (See history of present illness chronic low back pain currently trying to be managed with physical therapy and steroid injections. An intraforaminal injection of presumed steroid and local anesthetic today at L5-S1 on the left side.) Skin: Reports: No Symptoms Neurological: Reports: Numbness, Tingling, Weakness (Left leg) Psychiatric: Reports: No Symptoms Hematologic/Lymphatic: Reports: No Symptoms ED EXAM, DIZZINESS - Physical Exam Exam: See Below Exam Limited By: No Limitations General Appearance: Alert, WD/WN, No Apparent Distress, Anxious Eye Exam: Bilateral Eye: Normal Inspection Ears: Normal External Exam, Normal TMs Throat/Mouth: Normal Inspection, Normal Lips, Normal Teeth, Normal Oropharynx, Other Head Exam: Atraumatic, Normocephalic (Speech is normal) Neck: Normal Inspection, Supple, Non-Tender, Full Range of Motion. No: Lymphadenopathy (L), Lymphadenopathy (R) Respiratory/Chest: No Respiratory Distress, Lungs Clear, Normal Breath Sounds, No Accessory Muscle Use Cardiovascular: Normal Peripheral Pulses, Regular Rate, Rhythm, No Edema, No Gallop, No Murmur GI/Abdominal: Normal Bowel Sounds, Soft, Non-Tender, No Organomegaly Neurological: Alert, Normal Mood/Affect, Normal Dorsiflexion, CN II-XII Intact, Difficulty Walking. No: Normal Gait DTR: 0: Achilles (R), Achilles (L), 1+: Patella (R), Patella (L) Back Exam: Decreased Range of Motion, Other. No: Muscle Spasm Extremities: Normal Inspection (Bandage over injection site left lower back), Normal Range of Motion, Non-Tender, No Pedal Edema Psychiatric: Normal Affect, Normal Mood Skin Exam: Warm, Dry, Intact, Normal Color, No Rash Course - Vital Signs Last Recorded V/S: Last Vital Signs Temp 36.4 C 08/03/17 20:49 Pulse 72 08/03/17 20:49 Resp 16 08/03/17 20:49 BP 129/59 L 08/03/17 20:49 Pulse Ox 98 08/03/17 20:49 - Radiology Interpretation Free Text/Narrative:: 81-year-old female attends the ED with concerns about change in mental status as well as trouble walking. History suggests very long day today where she had to get up very early and travel to [place] for a special test and injection of left L5-S1 foramen with presume steroid and local anesthetic under fluoroscopy. She cases took the pain away for short period of time. She took a Percocet tablet at 1600 hrs. today and a tizanidine 4 mg at 1800 hrs. today at about 7: 30 was acting strange confused disoriented and spaced out for a period of time. There is no true vertigo but she was clumsy with her walker and her had to grab a hold of her so that she didn't fall. Her mentation is subsequently improved likely because of the drug is wearing off. Neuro exam is otherwise completely normal. She is exposed adverse effects of medication of the visualized he used tizanidine sparingly as it strongly sedating and she is not very big. The combination of Percocet and the tizanidine anything caused her current symptoms tonight. She'll be following up with her personal care provider and physiotherapy in the near future. Departure - Departure Time of Disposition: 21:11 Disposition: Home, Self-Care 01 Condition: Fair Clinical Impression: Adverse effects of medication Qualifiers: Encounter type: initial encounter Qualified Code(s): T88.7XXA - Unspecified adverse effect of drug or medicament, initial encounter - Discharge Information Referrals: Kike Warren MD [Primary Care Provider] - Forms: ED Department Discharge Additional Instructions: Evaluation the emergency room tonight in regards to development of feeling of off balance and weakness and trouble walking with walker. In terms for possibility of a stroke were entertained. Expressed a very long day getting a very early to travel to [place] for special tests and injections into your spine. It appears that years symptoms were side effects of medication Percocet and tizanidine. You're neurological exam is completely normal there is no evidence that you're suffering from vertigo are off balance feeling. Tizanidine is a sedating medication it's used primarily at bedtime to help sleep when pain in her back is quite bad and not responding to pain medication Percocet of course is a pain medication and takes a good hour to work and only lasts about 3 -1/2 hours before side of your system. Today a combination made you as you described at spaced out and somewhat confused and knocked herself. Symptoms are better now since the medications are wearing off. I would suggest the tizanidine only at bedtime and only if needed for muscle spasm or inability to sleep as it is strongly sedating. Percocet May be used every 4-6 hours needed for pain relief. Need to be on MiraLAX powder 17 g once daily while on the pain medication to prevent severe constipation from occurring. Follow-up with personal physician and/neurosurgeon as planned
== END 2017-08-03 21:35 | disposition home or self-care (01) ==
LOC: JD.ED 20:30
DX: R42 Dizziness and giddiness (principal); T40.2X5A Adverse effect of other opioids, initial encounter; T42.8X5A Adverse effect of antiparkinsonism drugs and other central muscle-tone depressants, initial encounter; E78.00 Pure hypercholesterolemia, unspecified; K21.9 Gastro-esophageal reflux disease without esophagitis; I10 Essential (primary) hypertension; Z88.8 Allergy status to other drugs, medicaments and biological substances; Z79.899 Other long term (current) drug therapy
CPT/HCPCS: 99283; 99284

== ENCOUNTER 2017-09-06 22:20 | Emergency (ER) | payer MEDICARE, OTHER ==
[2017-09-06 22:51] VITALS: BP 156/72
--- NOTE | 2017-09-06 22:59 | EDM.PDOC ---
ED HPI GENERAL MEDICAL PROBLEM - General Chief Complaint: ENT Problem Stated Complaint: RECENT SURGERY ON MEDS HEADACHE AND CONFUSED Time Seen by Provider: 09/06/17 22:59 - History of Present Illness INITIAL COMMENTS - FREE TEXT/NARRATIVE: 81-year-old female comes in to discuss possible side effects from medications versus did she have stroke. This evening around 6:30 the patient took one of her muscle relaxants and one for Percocet very close to each other shortly after this the patient developed some sedation she did not have any increased weakness in her extremities she was able to ambulate the way she normally does but if she was sitting still she might fall asleep mid conversation. No other abnormalities were appreciated. The patient had back surgery on Thursday in [place] she continues to have discomfort down her left leg this is very similar to how it was preoperatively. The patient is also concerned that she may be coming down with a sinus infection. Face Pain Score (Numeric/FACES): 2 - Related Data Allergies Allergy/AdvReac Type Severity Reaction Status Date / Time lidocaine AdvReac Mild Swelling Verified 09/06/17 22:52 Home Meds: Home Meds Lisinopril/Hydrochlorothiazide [Lisinopril-Hctz 20-12.5 mg Tab] 1 tab PO DAILY 11/15/14 [History] Metoprolol Tartrate 25 mg PO BID 11/15/14 [History] Denosumab [Prolia] 60 mg SQ ASDIRECTED 12/02/14 [History] Lactobacillus Acidophilus [Probiotic] 1 tab PO DAILY 12/02/14 [History] Cholecalciferol (Vitamin D3) [Vitamin D3] 1,000 unit PO DAILY 12/31/16 [History] Flaxseed Oil [Flax Oil] 450 mg PO DAILY 12/31/16 [History] Glucosamine/D3/Boswellia Angelique [Osteo Bi-Flex Caplet] 2 cap PO DAILY 12/31/16 [ History] [place]-3 Fatty Acids [Fish Oil] 300 mg PO DAILY 12/31/16 [History] Omeprazole 20 mg PO Q48H 12/31/16 [History] Vit A/C/E AC/Znox/Cupric Oxide [Eye Vitamin-Minerals Tablet] 1 tab PO DAILY 02/11 [History] Aspirin 81 mg PO BRK 07/08/17 [History] Acetaminophen [Tylenol] 650 mg PO Q4H PRN tablet 07/22/17 [Rx] Acetaminophen/oxyCODONE [Percocet 325-5 MG] 1 tab PO Q4H PRN #30 tablet [Rx] Celecoxib [CeleBREX] 100 mg PO BID #30 cap 07/22/17 [Rx] Magnesium Hydroxide [Milk of Magnesia] 30 ml PO BID PRN cup 07/22/17 [Rx] tiZANidine [Zanaflex] 4 mg PO Q8H PRN #30 tablet 07/22/17 [Rx] Docusate Sodium/Sennosides [Senna Plus] 1 tab PO BID 09/06/17 [History] Gabapentin [Neurontin] 100 mg PO BID 09/06/17 [History] Past Medical History HEENT History: Reports: Impaired Vision Other HEENT History: glasses. 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 Musculoskeletal History: Reports: Back Pain, Chronic, Other (See Below) Other Musculoskeletal History: sciatica, buldging disc Neurological History: Reports: Migraines Psychiatric History: Reports: None Endocrine/Metabolic History: Reports: None Hematologic History: Reports: None Immunologic History: Reports: None Oncologic (Cancer) History: Reports: None Dermatologic History: Reports: None - Past Surgical History Head Surgeries/Procedures: Reports: None HEENT Surgical History: Reports: Cataract Surgery, Tonsillectomy GI Surgical History: Reports: Appendectomy, Colonoscopy, Other (See Below) Other Musculoskeletal Surgeries/Procedures:: R joint fusion on toe, bunionecotmy Social & Family History - Tobacco Use Smoking Status *Q: Never Smoker Second Hand Smoke Exposure: No - Caffeine Use Caffeine Use: Reports: None Other Caffeine Use: decaf coffee. - Alcohol Use Days Per Week of Alcohol Use: 0 - Recreational Drug Use Recreational Drug Use: No - Living Situation & Occupation Living situation: Reports: , with Spouse Occupation: Retired ED ROS GENERAL - Review of Systems Review Of Systems: See Below Constitutional: Reports: No Symptoms HEENT: Reports: No Symptoms Respiratory: Reports: No Symptoms Cardiovascular: Reports: No Symptoms Endocrine: Reports: No Symptoms GI/Abdominal: Reports: No Symptoms : Reports: No Symptoms Musculoskeletal: Reports: No Symptoms Skin: Reports: No Symptoms Neurological: Reports: No Symptoms Psychiatric: Reports: No Symptoms Hematologic/Lymphatic: Reports: No Symptoms Immunologic: Reports: No Symptoms ED EXAM, GENERAL - Physical Exam Exam: See Below Exam Limited By: No Limitations General Appearance: Alert, No Apparent Distress Eye Exam: Bilateral Eye: Normal Inspection Ears: Normal External Exam, Normal Canal, Hearing Grossly Normal, Normal TMs Nose: Normal Inspection, Normal Mucosa, No Blood, Other (Patient does not have significant nasal drainage aggression over the sinuses is no more tender than normal.) Throat/Mouth: Normal Inspection, Normal Lips, Normal Teeth, Normal Gums, Normal Oropharynx, Normal Voice, No Airway Compromise Head: Atraumatic, Normocephalic Neck: Normal Inspection, Supple, Non-Tender, Full Range of Motion. No: Lymphadenopathy (L), Lymphadenopathy (R) Respiratory/Chest: No Respiratory Distress, Lungs Clear, Normal Breath Sounds Cardiovascular: Regular Rate, Rhythm, No Edema, No Murmur GI/Abdominal: Normal Bowel Sounds, Soft, Non-Tender Back Exam: Normal Inspection, Other (Recent surgery site appears to be healing no abnormal redness or drainage noted) Neurological: Alert, Oriented, Normal Cognition, Other (Cranial nurse 2 through 12 grossly intact all muscle groups the upper extremities recall appropriate bilaterally deep tendon reflexes the brachial radialis and patella tendons are equal and appropriate bilaterally. The patient ambulates normally with the aid of a walker. Cerebellar testing finger to nose is normal bilaterally) Psychiatric: Normal Affect, Normal Mood Skin Exam: Warm, Dry, Intact Lymphatic: No Adenopathy Course - Vital Signs Last Recorded V/S: Last Vital Signs Temp 36.6 C 09/06/17 22:44 Pulse 63 09/06/17 22:44 Resp 18 09/06/17 22:44 BP 156/72 H 09/06/17 22:44 Pulse Ox 99 09/06/17 22:44 Departure - Departure Time of Disposition: 23:41 Disposition: Home, Self-Care 01 Clinical Impression: Sedated due to medication - Discharge Information Referrals: Kike Warren MD [Primary Care Provider] - Forms: ED Department Discharge Additional Instructions: Return to the emergency room with any questions problems worsening symptoms. Use your sinus irrigation device. Follow-up with your physicians as needed and as scheduled.
== END 2017-09-07 00:06 | disposition home or self-care (01) ==
LOC: JD.ED 22:20
DX: T42.8X5A Adverse effect of antiparkinsonism drugs and other central muscle-tone depressants, initial encounter (principal); T40.2X5A Adverse effect of other opioids, initial encounter; T39.1X5A Adverse effect of 4-Aminophenol derivatives, initial encounter; R51 Headache; I10 Essential (primary) hypertension; E78.00 Pure hypercholesterolemia, unspecified; K21.9 Gastro-esophageal reflux disease without esophagitis; Z79.899 Other long term (current) drug therapy; Z79.82 Long term (current) use of aspirin; Z88.4 Allergy status to anesthetic agent; M79.605 Pain in left leg
CPT/HCPCS: 93971-26-LT; 93971-LT; 99283; 99284

== ENCOUNTER 2017-09-13 09:04 | Emergency (ER) | payer MEDICARE, OTHER ==
[2017-09-13 09:15] VITALS: BP 157/81
--- NOTE | 2017-09-13 10:29 | EDM.PDOC ---
ED HPI GENERAL MEDICAL PROBLEM - General Chief Complaint: Lower Extremity Injury/Pain Stated Complaint: LEG PAIN Time Seen by Provider: 09/13/17 09:11 Source of Information: Reports: Patient, Family (, daughter), RN History Limitations: Reports: No Limitations - History of Present Illness INITIAL COMMENTS - FREE TEXT/NARRATIVE: The patient states that she has had left lower extremity pain on and off for the past 2 years. The pain is felt to be lumbar radiculopathy due to osteoporosis, osteoarthritis, scoliosis, and degenerative disc disease. She denies having back pain itself. She has been taking gabapentin 100 mg TID for years. She underwent a left L4/L5 foraminotomy on 09/02/[address] Cao, at [facility]. She was discharged home with Percocet, which she states does not seem to be doing anything. She states that her symptoms actually got worse after surgery. When she notified Dr. Cao's nurse of this, she was prescribed a Medrol Dosepak and baclofen, but no other medication modification. The patient states that she took 1 dose of the Medrol Dosepak yesterday, but felt strange, therefore did not take the second dose. She has only taken a total of 2 doses of baclofen so far. She is to follow-up with Dr. Cao on . The patient now presents due to left lower extremity pain, worse on the thigh than the calf and foot, worse on the anterior aspect of the thigh than the posterior. She states that this pain is worse than her usual, beginning around midnight last night. The patient's PCP is Dr. Warren. Left Leg Pain Score (Numeric/FACES): 10 - Related Data Allergies Allergy/AdvReac Type Severity Reaction Status Date / Time lidocaine AdvReac Mild Swelling Verified 09/06/17 22:52 Home Meds: Home Meds Lisinopril/Hydrochlorothiazide [Lisinopril-Hctz 20-12.5 mg Tab] 1 tab PO DAILY 11/15/14 [History] Metoprolol Tartrate 25 mg PO BID 11/15/14 [History] Denosumab [Prolia] 60 mg SQ ASDIRECTED 12/02/14 [History] Lactobacillus Acidophilus [Probiotic] 1 tab PO DAILY 12/02/14 [History] Cholecalciferol (Vitamin D3) [Vitamin D3] 1,000 unit PO DAILY 12/31/16 [History] Flaxseed Oil [Flax Oil] 450 mg PO DAILY 12/31/16 [History] Glucosamine/D3/Boswellia Angelique [Osteo Bi-Flex Caplet] 2 cap PO DAILY 12/31/16 [ History] Jordan-3 Fatty Acids [Fish Oil] 300 mg PO DAILY 12/31/16 [History] Omeprazole 20 mg PO Q48H 12/31/16 [History] Vit A/C/E AC/Znox/Cupric Oxide [Eye Vitamin-Minerals Tablet] 1 tab PO DAILY 02/11 [History] Aspirin 81 mg PO BRK 07/08/17 [History] Acetaminophen [Tylenol] 650 mg PO Q4H PRN tablet 07/22/17 [Rx] Acetaminophen/oxyCODONE [Percocet 325-5 MG] 1 tab PO Q4H PRN #30 tablet [Rx] Celecoxib [CeleBREX] 100 mg PO BID #30 cap 07/22/17 [Rx] Magnesium Hydroxide [Milk of Magnesia] 30 ml PO BID PRN cup 07/22/17 [Rx] Docusate Sodium/Sennosides [Senna Plus] 1 tab PO BID 09/06/17 [History] Gabapentin [Neurontin] 100 mg PO BID 09/06/17 [History] Baclofen 10 mg PO TID PRN 09/13/17 [History] Gabapentin [Neurontin] 300 mg PO TID #90 cap 09/13/17 [Rx] Gabapentin [Neurontin] 300 mg PO TID #90 cap 09/13/17 [Rx] Past Medical History HEENT History: Reports: Impaired Vision Other HEENT History: glasses. Cardiovascular History: Reports: High Cholesterol, Hypertension, Other (See Below) (Carotid artery stenosis) Gastrointestinal History: Reports: Colon Polyp, Diverticulosis, GERD, Irritable Bowel Syndrome, PUD Genitourinary History: Reports: Urinary Incontinence Musculoskeletal History: Reports: Back Pain, Chronic (Scoliosis, DDD), Osteoarthritis, Osteoporosis, Other (See Below) - Past Surgical History HEENT Surgical History: Reports: Cataract Surgery, Oral Surgery ([place] teeth extraction), Tonsillectomy GI Surgical History: Reports: Appendectomy, Colonoscopy Female Surgical History: Reports: D&C (x 2) Musculoskeletal Surgical History: Reports: Other (See Below) (Rt foot bunionectomy/hammertoe/joint fusion 01/01/2017) Social & Family History - Tobacco Use Smoking Status *Q: Never Smoker Second Hand Smoke Exposure: No - Caffeine Use Caffeine Use: Reports: None Other Caffeine Use: decaf coffee. - Alcohol Use Alcohol Use History: Yes Alcohol Use Frequency: Socially - Recreational Drug Use Recreational Drug Use: No - Living Situation & Occupation Living situation: Reports: , with Spouse Occupation: Retired Review of Systems - Review of Systems Review Of Systems: See Below Constitutional: Reports: No Symptoms Eyes: Reports: No Symptoms Ears: Reports: No Symptoms Nose: Reports: No Symptoms Mouth/Throat: Reports: No Symptoms Respiratory: Reports: No Symptoms Cardiovascular: Reports: No Symptoms GI/Abdominal: Reports: No Symptoms Genitourinary: Reports: No Symptoms Musculoskeletal: Reports: No Symptoms Skin: Reports: No Symptoms Neurological: Reports: Other (Left lumbar radiculopathy, as per the HPI) Psychiatric: Reports: No Symptoms ED EXAM, GENERAL - Physical Exam Exam: See Below Exam Limited By: No Limitations General Appearance: Alert, WD/WN, No Apparent Distress Extremities: Other (Reproducible tenderness to palpation of the anterior left thigh and posterior left calf. 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 In reviewing the patient's medications, I find that she is on a subtherapeutic dose of gabapentin, 100 mg TID. I'm going to increase this to 300 mg TID, noting that she may require further increases. The patient started a Medrol Dosepak yesterday, but took only 1 dose. I'm recommending that she continue this. I am recommending that the patient not take any NSAIDs while on the methylprednisolone. I'm recommending that she continue the baclofen, as tenderness to her left lower extremity suggests a musculoskeletal component to her pain. I'm recommending that she discontinue the Percocet, as it is not good for either muscle spasms or neuropathy, and the patient herself has noted that it is not helping. I would like the patient to be active, and am recommending that she swim. I would like her to contact Dr. Warren tomorrow, notifying him of today's ED visit. Departure - Departure Time of Disposition: 10:25 Disposition: Home, Self-Care 01 Condition: Good Clinical Impression: Chronic left lumbar radiculopathy - Discharge Information Prescriptions: Gabapentin [Neurontin] 300 mg PO TID #90 cap Gabapentin [Neurontin] 300 mg PO TID #90 cap Instructions: Chronic Back Pain Referrals: Kike Warren MD [Primary Care Provider] - Forms: ED Department Discharge Additional Instructions: You were seen in the emergency room for continued left lower extremity pain. Based on prior evaluations, your pain is due to irritation/inflammation of the nerves going to your left lower extremity. We recommend that you increase your gabapentin to 300 mg 3 times a day, up from 100 mg 3 times a day. A prescription for this new dose has been electronically sent to [facility]. Remember that if you take the higher dose of gabapentin, you DO NOT also take the lower dose. We recommend that you resume the previously prescribed methylprednisolone. While on methylprednisolone, it is important that you DO NOT also take an NSAID , such as aspirin, ibuprofen, Aleve, or Celebrex. Continue to take baclofen as prescribed. We recommend that you discontinue Percocet, as it does not seem to be helping you, and may cause problems. It is important that you remain active. Swimming is best, however, you should avoid bending over or twisting your spine. Please notify the office of Dr. Warren in the morning of your ER visit and increased gabapentin dose. If any other problems, please do not hesitate to return to the ER.
== END 2017-09-13 10:55 | disposition home or self-care (01) ==
LOC: JD.ED 09:04
DX: M54.16 Radiculopathy, lumbar region (principal); I10 Essential (primary) hypertension; E78.00 Pure hypercholesterolemia, unspecified; M81.0 Age-related osteoporosis without current pathological fracture; M19.90 Unspecified osteoarthritis, unspecified site; Z79.899 Other long term (current) drug therapy; Z88.8 Allergy status to other drugs, medicaments and biological substances
CPT/HCPCS: 99283

== ENCOUNTER 2021-12-14 22:00 | Emergency (ER) | payer MEDICARE, OTHER ==
[2021-12-15] MEDS ORDERED: fentaNYL 100 MCG/2 ML SDV IVPUSH ONE ×3 (00:03→02:35)
[2021-12-15] MEDS ORDERED: hydrALAZINE 20 MG/ML SDV IVPUSH ONE ×2 (01:11→03:12)
[2021-12-15] MEDS ORDERED: HYDROmorphone 0.5 MG/0.5 ML Syringe IVPUSH ONE ×5 (04:01→08:29)
[2021-12-15] MEDS ORDERED: HYDROmorphone 0.5 MG/0.5 ML Syringe ONE (04:03)
[2021-12-15] MEDS ORDERED: Hydrochlorothiazide 25 MG Tab PO ONE (07:29)
[2021-12-15] MEDS ORDERED: Metoprolol Tartrate 25 MG Tab PO ONE (07:29)
[2021-12-15] MEDS ORDERED: Lisinopril 10 MG Tab PO ONE (07:29)
[2021-12-15] MEDS ORDERED: niCARdipine HCl 25 MG in Sodium Chloride 0.9% 250 ML IV SCH (07:30)
[2021-12-15] MEDS ORDERED: Ondansetron 4 MG/2 ML SDV IVPUSH ONE (08:04)
[2021-12-15 08:38] VITALS: PULSE 90
[2021-12-15 08:58] VITALS: BP 139/86
== END 2021-12-15 08:50 ==
LOC: JD.ED 22:00
DX: M54.10 Radiculopathy, site unspecified (principal); I16.0 Hypertensive urgency; I10 Essential (primary) hypertension; E78.00 Pure hypercholesterolemia, unspecified; K21.9 Gastro-esophageal reflux disease without esophagitis; M19.90 Unspecified osteoarthritis, unspecified site; Z88.4 Allergy status to anesthetic agent; Z79.82 Long term (current) use of aspirin; Z79.899 Other long term (current) drug therapy
CPT/HCPCS: 36415; 70450; 71045; 80053; 81001; 84484; 85025; 86140; 87086; 87088; 87186; 93005; 96365; 96375; 96376; 99285; A9270; J0360; J1170; J2405; J3010; J7050; 93010

== ENCOUNTER 2022-05-01 07:04 | Emergency (ER) | payer MEDICARE, OTHER ==
[2022-05-01 07:18] VITALS: BP 161/83; PULSE 61
[2022-05-01] MEDS ORDERED: Sodium Chloride 0.9% 1,000 ML IV SCH (08:00)
== END 2022-05-01 09:50 | disposition home or self-care (01) ==
LOC: JD.ED 07:04
DX: K62.5 Hemorrhage of anus and rectum (principal); I10 Essential (primary) hypertension; Z88.4 Allergy status to anesthetic agent; Z79.899 Other long term (current) drug therapy; Z79.82 Long term (current) use of aspirin
CPT/HCPCS: 36415; 80053; 85025; 85610; 96360; 96361; 99283; J7030

== ENCOUNTER 2024-08-29 21:37 | Emergency (ER) | payer BC, MEDICARE ==
[2024-08-29] MEDS ORDERED: Sodium Chloride 0.9% 10 ML Syringe FLUSH PRN (23:34)
[2024-08-30 00:27] LABS: BASOPHILS ABSOLUTE AUTO 0.1 K/mm3 (0.0-0.2); EOSINOPHILS ABSOLUTE AUTO 0.2 K/mm3 (0.0-0.4); HEMATOCRIT 41.2 % (37.0-47.0); HEMOGLOBIN 13.3 gm/dl (12.0-16.0); IMMATURE GRAN ABSOLUTE AUTO 0.01 K/mm3 (0.00-0.05); IMMATURE GRAN PERCENT AUTO 0.2 % (0.0-0.4); LYMPHOCYTES ABSOLUTE AUTO 1.6 K/mm3 (1.0-4.8); LYMPHOCYTES PERCENT AUTO 32.7 % (24.0-44.0); MEAN CORPUSCULAR HEMOGLOBIN 31.2 pg (28.0-32.0); MEAN CORPUSCULAR HGB CONC 32.3 g/dl (32.0-36.0); MEAN CORPUSCULAR VOLUME 96.7 fl (83.0-99.0); MEAN PLATELET VOLUME 9.8 fl (9.4-12.3); MONOCYTES ABSOLUTE AUTO 0.6 K/mm3 (0.0-0.8); MONOCYTES PERCENT AUTO 12.1 % (0.0-8.0); NEUTROPHILS ABSOLUTE AUTO 2.5 K/mm3 (1.8-7.7); PLATELET COUNT,PLT 187 K/mm3 (150-400); RED BLOOD CELL COUNT 4.26 M/mm3 (4.10-5.30); WHITE BLOOD CELL COUNT,WBC 4.95 K/mm3 (3.9-11.3)
[2024-08-30 00:38] LABS: A/G RATIO 1.1 (1-2); ALBUMIN 3.6 g/dl (3.4-5.0); ANION GAP 12.2 (5-15); BILIRUBIN TOTAL 0.4 mg/dL (0.2-1.0); BUN/CREATININE RATIO 24.3 (14-18); CALCIUM 8.7 mg/dL (8.5-10.1); CREATININE 0.7 mg/dL (0.55-1.02); EST CRCL DRUG DOSING (CG) 40.58 mL/min; PROTEIN TOTAL,TP 6.9 g/dl (6.4-8.2)
[2024-08-30 00:49] LABS: POTASSIUM,K 4.2 mEq/L (3.5-5.1)
[2024-08-30 01:14] LABS: TSH 2.705 uIU/mL (0.358-3.74)
[2024-08-30] MEDS: hydrALAZINE 20 MG/ML SDV IVPUSH ONE (01:22)
[2024-08-30] MEDS ORDERED: Naloxone 0.4 MG/ML SDV IVPUSH PRN (04:01)
[2024-08-30] MEDS ORDERED: Acetaminophen 325 MG Tab PO ONE (04:01)
[2024-08-30] MEDS ORDERED: Morphine 4 MG/ML Syringe IVPUSH ONE (04:01)
[2024-08-30] MEDS: Acetaminophen 325 MG Tab PO ONE (04:16)
[2024-08-30 07:21] VITALS: BP 178/73; PULSE 64
== END 2024-08-30 07:15 | disposition home or self-care (01) ==
LOC: JD.ED 21:37
DX: I16.0 Hypertensive urgency (principal); I10 Essential (primary) hypertension; E78.00 Pure hypercholesterolemia, unspecified; Z90.49 Acquired absence of other specified parts of digestive tract; Z79.899 Other long term (current) drug therapy; Z79.82 Long term (current) use of aspirin; Z88.8 Allergy status to other drugs, medicaments and biological substances
CPT/HCPCS: 36415; 71045; 80053; 83735; 84443; 84484; 85025; 93005; 96374; 99284; A9270; J0360; 93010